=== PATIENT | male | born 1950 | race Caucasian/White ===

== ENCOUNTER → 2020-05-18 11:19 | Outpatient (CLI) | payer MEDICARE, OTHER, SELFPAY ==
[2020-05-18] MEDS: COVID-19 VACC #1, MRNA(MOD) 100 MCG/0.5 ML VIAL IM (11:24)
== END ==
PROVIDERS: Visit Provider Internal Medicine
DX: Z23 Encounter for immunization (principal)
CPT/HCPCS: 0011A; 91301

== ENCOUNTER → 2020-06-15 12:20 | Outpatient (CLI) | payer MEDICARE, OTHER, SELFPAY ==
[2020-06-15] MEDS: COVID-19 VACC #2, MRNA(MOD) 100 MCG/0.5 ML VIAL IM (12:30)
== END ==
PROVIDERS: Visit Provider Internal Medicine
DX: Z23 Encounter for immunization (principal)
CPT/HCPCS: 0012A; 91301

== ENCOUNTER 2022-10-09 07:13 | Emergency (ER) | payer MEDICARE, OTHER, SELFPAY ==
[2022-10-09 07:24] VITALS: BP 208/98; PULSE 71; RESP 16; TEMP 37.6; O2SAT 99; BMI 26.4
--- NOTE | 2022-10-09 07:24 | ED.GENADULT ---
HPI - General Adult General Chief complaint: Urogenital-Male Stated complaint: bladder infection Time Seen by Provider: 10/09/22 07:14 History of Present Illness HPI narrative: 72-year-old male nonsmoker with noncontributory chronic medical history presents with a chief complaint of concerns about a urinary tract infection. He states that he has had urinary frequency and dribbling urine. He has some suprapubic tenderness but is otherwise well. He denies dizziness, weakness or lightheadedness. He has no chest pain or shortness of breath. He denies back pain, fever or chills. He is had no lower extremity pain, numbness, tingling or weakness. He denies any numbness in his groin. He denies any new medications or traumatic injury. Related Data Previous Rx's Medication Instructions Recorded tamsulosin 0.4 mg capsule (Flomax) 0.4 mg PO DAILY #30 caps 10/09/22 Allergies Allergy/AdvReac Type Severity Reaction Status Date / Time No Known Drug Allergies Allergy Verified 10/09/22 07:26 Review of Systems Review of Systems Narrative: GENERAL: Denies chills, fatigue, malaise, fever, sweats. HEENT: Denies sinus pain, ear pain, sore throat, difficulty swallowing, dizziness. RESPIRATORY: Denies dyspnea, cough, wheezing, hemoptysis, sputum. CARDIOVASCULAR: Denies chest pain, palpitations, orthopnea, edema, GASTROINTESTINAL: Denies nausea, vomiting, abdominal pain, diarrhea, constipation, melena. : See HPI MUSCULOSKELETAL: denies weakness, joint pain, or bony pain SKIN: Denies rash, skin lesions, or other NEUROLOGIC: Denies weakness, headache, numbness, change in speech, confusion, seizures, incoordination. PSYCHIATRIC: No concerning psychosocial issues. 12 point review of systems is negative except for those stated above Patient History Social History Smoking Status: Never smoker Exam Narrative Exam Narrative: GENERAL: [72] year old patient appears stated age. Well-developed patient, in mild distress. HEAD: Atraumatic. Normocephalic. EYES: Pupils equal round and reactive. Extraocular motions intact. No scleral icterus. No injection or drainage. ENT: Nose without bleeding, purulent drainage. Throat without erythema, tonsillar hypertrophy or exudate. Airway patent. NECK: Trachea midline. Non tender CARDIOVASCULAR: Regular rate and rhythm without murmurs, gallops, or rubs. RESPIRATORY: Clear to auscultation. Breath sounds equal bilaterally. No wheezes, rales, or rhonchi. GASTROINTESTINAL: Abdomen mild tenderness over suprapubic region fullness on palpation, nondistended. Bowel sounds present EXTREMITIES: No edema or joint tenderness. BACK: Nontender without deformity or crepitance. No flank tenderness. No saddle anesthesia or lower extremity numbness, tingling or weakness NEURO: AOx3. SKIN: No rash or erythema of visible areas Initial Vital Signs Initial Vital Signs: Vital Signs Temperature 99.6 F 10/09/22 07:24 Pulse Rate 71 10/09/22 07:24 Respiratory Rate 16 10/09/22 07:24 Blood Pressure 208/98 H 10/09/22 07:24 Pulse Oximetry 99 10/09/22 07:24 Oxygen Delivery Method Room Air 10/09/22 07:24 Course Course Course Narrative: Postvoid residual bladder scan notes greater than 999mL. Bowers catheter placed by nursing. Patient experiences in immediate near-complete resolution of symptoms Orders Ordered: Discontinued Medications Lidocaine HCl (Lidocaine 2% (Glydo) 6 Ml Gel) 6 ml TOP NOW ONE Stop: 10/09/22 07:39 Last Admin: 10/09/22 08:20 Dose: 6 ml Documented By: NR Vital Signs Vital signs: Vital Signs - 8 hr 10/09/22 07:24 10/09/22 08:15 10/09/22 08:15 Temperature 99.6 F Pulse Rate 71 67 Respiratory Rate 16 Blood Pressure 208/98 H 197/90 H Pulse Oximetry 99 97 Oxygen Delivery Method Room Air Medical Decision Making Lab Data Labs: Lab Results 10/09/22 Range/Units 08:18 Urine RBC >100/hpf H (0-5/HPF) Urine WBC 1-5/hpf (0-5/HPF) Ur Squamous Epith Cells 1-5 /hpf (0-5/HPF) Urine Bacteria Occasional (0-1) (None) Ur Culture Indicated? Cult not indicated Urine Dip Bedside Urine Glucose Negative Bedside Urine Bilirubin - Negative Bedside Urine Ketone - Negative Urine Specific [place] 1.015 Bedside Urine Occult Blood +++ Bedside Urine pH 6.0 Bedside Urine Protein + 30 Bedside Urine Urobilinogen - Negative Bedside Urine Nitrite - Negative Bedside Urine Leukocytes +/- 15 Esterase Point of care testing: Urine Dip Bedside Urine Glucose Negative Bedside Urine Bilirubin - Negative Bedside Urine Ketone - Negative Urine Specific [place] 1.015 Bedside Urine Occult Blood +++ Bedside Urine pH 6.0 Bedside Urine Protein + 30 Bedside Urine Urobilinogen - Negative Bedside Urine Nitrite - Negative Bedside Urine Leukocytes +/- 15 Esterase MDM Narrative Medical decision making narrative: [72] year old patient presents with urinary difficulty Multiple etiologies for patient's symptoms considered including, but not limited to: [UTI versus urinary retention versus other] Prior Charts reviewed in our EMR Primary Historian: patient Labs reviewed and interpreted by myself: No evidence of urinary infection Imaging reviewed: Bladder scan notes greater than 999 mL of urine postvoid residual Patient's symptoms improved over duration of stay with above-stated therapies. Patient has no signs of cauda equina such as saddle anesthesia, lower extremity weakness, depressed reflexes, no back pain. Patient has no other symptoms. There was some difficulty advancing a Bowers catheter and eventually a coude was inserted which is consistent with prostate problem. Patient has complete resolution of symptoms after Bowers catheter placed Findings and discharge diagnosis discussed with patient/family followed by verbalization of understanding Return precautions discussed with patient/family whom verbalize understanding of diagnosis and plan Discharge Plan Departure Patient Disposition: Home Clinical Impression: Acute retention of urine Instructions: DI for Urinary Retention in Men Activity Restrictions/Additional Instructions: *You have been diagnosed with [acute urinary retention] *What to do: *Please continue to take your regular medications as directed. [x ] New medication prescriptions sent to your pharmacy: [[facility] ] [ ] New medication written as a paper prescription [ ] No new medications given *Please follow up with Dr. Kearney or Dr. Camarillo with the urology clinic. Please call the office later today, let them know that you were seen in the emergency department and we would like you seen in follow-up. I will electronically transmitted a copy of today's note *Return to Emergency Department if you should have any new, worsening or concerning symptoms, such as [fever greater than 101 F, shaking chills, worsening pain, persistent vomiting or other bothersome symptoms] Prescriptions: New tamsulosin [Flomax] 0.4 mg capsule 0.4 mg PO DAILY Qty: 30 0RF Referrals: Krysten Kearney MD [Physician] - Stand Alone Forms: Patient Portal/API
[2022-10-09 08:15] VITALS: BP 197/90; PULSE 67; O2SAT 97
--- NOTE | 2022-10-09 08:19 | PC.NURSE ---
pt states he takes his blood pressure at home and it tends to be much lower, it is always really high when he comes to a doctor.
[2022-10-09] MEDS: LIDOCAINE 2% (GLYDO) 6 ML GEL TOP (08:20)
--- NOTE | 2022-10-09 08:20 | PC.NURSE ---
spoke with provider about amount out of quevedo upon placement. quevedo clamped at 1500ml output. awaiting provider order to unclamp quevedo
[2022-10-09 08:30] VITALS: BP 173/81; PULSE 63; O2SAT 97
[2022-10-09 08:48] LABS: Bacteria Urine Occasional (0-1); Culture Indicated Urine Cult Not Indicated; RBC Urine >100/HPF (0-5/HPF); Squamous Epithelial Cell Urine 1-5 /HPF (0-5/HPF); WBC Urine 1-5/HPF (0-5/HPF)
--- NOTE | 2022-10-09 08:54 | PC.NURSE ---
quevedo unclamped with provider in room. 1000ml voided from catheter before trickly only seen in quevedo tubing. provider notified on spot.
[2022-10-09 09:00] VITALS: BP 178/76; PULSE 59; O2SAT 97
== END 2022-10-09 09:21 | disposition home or self-care (01) ==
PROVIDERS: Emergency Provider Emergency Medicine
DX: R33.9 Retention of urine, unspecified (principal)
CPT/HCPCS: 51798; 81003; 81015; 99282; 99284

== ENCOUNTER → 2022-12-25 16:06 | Outpatient (CLI) | payer MEDICARE, OTHER, SELFPAY | PROVIDERS: Visit Provider Urology | DX: Z97.8 Presence of other specified devices (principal) | CPT/HCPCS: 87077; 87086; 87186 ==

== ENCOUNTER → 2023-02-25 10:55 | Outpatient (CLI) | payer MEDICARE, OTHER, SELFPAY | PROVIDERS: Visit Provider Urology | DX: T83.511A Infection and inflammatory reaction due to indwelling urethral catheter, initial encounter (principal); N39.0 Urinary tract infection, site not specified; R31.29 Other microscopic hematuria; R33.9 Retention of urine, unspecified; R39.9 Unspecified symptoms and signs involving the genitourinary system | CPT/HCPCS: 51798; 81002; 87077; 87086; 87147; 87186; 99214 ==

== ENCOUNTER 2023-06-01 10:08 | Emergency (ER) | payer MEDICARE, OTHER, SELFPAY ==
[2023-06-01] VITALS (102 sets, daily range): BP systolic 72–167; BP diastolic 46–95; PULSE 90–154; RESP 18–71; TEMP 36.2–37.9; O2SAT 78–97; BMI 26.4
--- NOTE | 2023-06-01 10:53 | DI.CT.S_ITS ---
PROCEDURE: CT STROKE INDICATIONS: confusion wor, not acting right, sudden onset slurred speech TECHNIQUE: Noncontrast 4.5 mm thick angled axial sections acquired from the foramen magnum to the vertex, with coronal reformats. For radiation dose reduction, the following was used: automated exposure control, adjustment of mA and/or kV according to patient size. COMPARISON: None. FINDINGS: Image quality: Diagnostic. CSF spaces: Basal cisterns are patent. No extra-axial fluid collections. Ventricles are normal in size and shape. Brain: No midline shift. No intracranial masses or hemorrhage. [place]-white matter interface is within normal limits. Skull and face: Calvarium and visualized facial bones are intact, without suspicious lesions. Sinuses: Partial opacification of the left maxillary sinus. Mucosal thickening in the right maxillary sinus. Partial opacification of the ethmoid air cells. Opacification of the left frontal sinus. Mild mucosal thickening in the right frontal sinus. Scant mucosal thickening in the sphenoid sinuses. Mastoids are clear. IMPRESSION: No acute intracranial hemorrhage. Paranasal sinusitis. Comment: Findings were discussed with Blank Vega at 11:32 AM on 06/01/2023. This study fulfills neurological imaging criteria for inclusion or exclusion of acute stroke therapies based on available published neurological imaging guidelines. Dictated by: Mckay Pillai M.D. on 06/01/2023 at 11:28 Approved by: Mckay Pillai M.D. on 06/01/2023 at 11:33
[2023-06-01] MEDS: ONDANSETRON 4 MG/2 ML INJ IV (11:00)
[2023-06-01 11:01] LABS: Add Manual Diff / Slide Review NO; Basophils Absolute Auto 0 /uL (0-100); Basophils Percent Auto 0.2 % (0-2); Eosinophils Absolute Auto 0 /uL (0-450); Hematocrit 43.8 % (41-53); Hemoglobin 15.1 g/dL (13.5-17.5); Lymphocytes Absolute Auto 800 /uL (1100-4500); Lymphocytes Percent Auto 7.2 % (25-40); Mean Corpuscular HGB Conc 34.5 % (30-36); Mean Corpuscular Hemoglobin 29.5 PG (26-34); Mean Corpuscular Volume 85.6 fL (80-100); Monocytes Absolute Auto 1200 /uL (0-900); Monocytes Percent Auto 10.7 % (3-14); Neutrophils Absolute Auto 9000 /uL (1500-7000); Neutrophils Percent Auto 81.9 % (50-75); Platelet Count 457 X10^3/uL (150-400); Red Blood Cell Count 5.12 X10^6/uL (4.5-5.9); Red Cell Distribution Width 14.2 % (11.6-14.8)
[2023-06-01 11:05] LABS: INR 1.2 (0.9-1.3); Prothrombin Time 14.2 SECONDS (9.4-12.5)
[2023-06-01 11:07] LABS: PTT Partial Thromboplastin Tim 28 SECONDS (25.1-36.5)
[2023-06-01 11:11] LABS: Lactate (Lactic Acid) 1.9 mmol/L (0.7-2.1)
[2023-06-01 11:12] LABS: Alanine Aminotransferase 18 IU/L (<50); Albumin 4.1 g/dL (3.5-5.0); Albumin Globulin Ratio 1.1 (1.0-2.8); Alkaline Phosphatase 398 U/L (38-126); Aspartate Aminotransferase 28 IU/L (17-59); BUN Creatinine Ratio 37.2 (6-22); Bilirubin Total 0.8 mg/dL (0.2-1.3); Blood Urea Nitrogen 35 mg/dL (9-20); Calcium 8.8 mg/dL (8.4-10.2); Carbon Dioxide 27 mmol/L (22-32); Chloride 90 mmol/L (98-107); Estimated Glomerular Filt Rate > 60 mL/min (>60); Globulin 3.9 g/dL (1.7-4.1); Glucose 161 mg/dL (80-110); Lipase 81 U/L (23-300); Sodium 130 mmol/L (137-145)
--- NOTE | 2023-06-01 11:12 | DI.RAD.S_ITS ---
PROCEDURE: XR CHEST 1V INDICATIONS: disoriented, altered, vomiting green, ? weakness TECHNIQUE: One view of the chest was acquired. COMPARISON: None. FINDINGS: Surgical changes and devices: NGT is present, which extends below the level of the film. ETT is present, tip of which is in expected location. Lungs and pleura: There is moderate right and mild left bilateral mid lung airspace opacity.. No pleural effusions or pneumothorax. Mediastinum: Mediastinal contours appear normal. Heart size is normal. Bones and chest wall: No suspicious bony lesions. Overlying soft tissues appear unremarkable. IMPRESSION: Bilateral pneumonia. Dictated by: Valeria Scanlon M.D. on 06/01/2023 at 12:29 Approved by: Valeria Scanlon M.D. on 06/01/2023 at 12:29
--- NOTE | 2023-06-01 11:12 | DI.CT.S_ITS ---
PROCEDURE: CT CHEST ABD PEL W CON INDICATIONS: disoriented, altered, vomiting green, ? weakness TECHNIQUE: After the administration of intravenous contrast, 5 mm thick sections acquired from the lung apices to the symphysis. 5 mm coronal and sagittal reformats were performed, with additional 7 mm MIP reformats through the lungs. For radiation dose reduction, the following was used: automated exposure control, adjustment of mA and/or kV according to patient size. COMPARISON: None. FINDINGS: Image quality: Excellent. CHEST: Lower Neck: No enlarged lymph nodes. Thyroid: Left thyroid nodule measuring 35 mm. Axillae: No enlarged lymph nodes. Chest Wall: Unremarkable. Lungs and Pleura: No pneumothorax . Small right pleural effusion. Mild left greater than right patchy bilateral lower lobe and left upper lobe densities. Heart: Heart size is normal. No pericardial effusion. Thoracic Vessels: The aorta and pulmonary arteries demonstrate normal size. Mediastinum and [place]: No enlarged lymph nodes. Esophagus: Moderate diffuse esophageal wall thickening.. ABDOMEN: Liver: No solid mass. Gallbladder: No radiopaque gallstones or wall thickening. Biliary ducts: No biliary dilation. Pancreas: No ductal dilation. Spleen: Size is within normal limits. Adrenal Glands: No adrenal nodules. Kidneys and Ureters: No hydronephrosis. No solid mass. No complex renal cystic lesion which requires follow up. Stomach and Bowel: Multiple moderately distended loops of proximal and mid small bowel. Distal ileum is decompressed. Transition between dilated and nondilated small bowel is not well seen. Appendix is normal. Colon is nondistended. Peritoneum: No abnormal intraperitoneal fluid. No free air. Ventral Wall: No significant ventral hernia. Abdominal Nodes: No retroperitoneal or mesenteric adenopathy by size criteria. Vessels: Aorta and inferior vena cava are normal in size. PELVIS: Pelvic Organs: Unremarkable. Bladder: No bladder wall thickening, accounting for underdistention. Pelvic Nodes: No enlarged lymph nodes. Miscellaneous: Large bowel containing left inguinal hernia containing a loop of sigmoid colon, measuring 13 cm. Small bowel containing right inguinal hernia measuring roughly 9 cm. Bones: Multiple sclerotic foci throughout the axial and appendicular skeleton. IMPRESSION: 1. Small-bowel obstruction associated with small bowel dilatation as well as gastric dilatation. 2. Bowel containing bilateral inguinal hernias. 3. Normal appendix. 4. Esophageal thickening, consistent with ischemia, infection, or inflammation. 5. Left thyroid nodule. Further assessment with nonemergent outpatient follow-up ultrasound examination is recommended. 6. Bilateral lower lung predominant pneumonia versus aspiration. 7. Moderate osseous metastatic disease. Dictated by: Valeria Scanlon M.D. on 06/01/2023 at 12:10 Approved by: Valeria Scanlon M.D. on 06/01/2023 at 12:16
[2023-06-01 11:13] LABS: Creatine Kinase 56 U/L (55-170); Ethanol (ETOH) < 10 mg/dL
[2023-06-01 11:15] LABS: HEMOLYSIS 57 (0-50); Potassium 4.3 mmol/L (3.4-5.1)
--- NOTE | 2023-06-01 11:18 | ED.AMS ---
HPI - Altered Mental Status General Chief Complaint: Urogenital-Male Stated Complaint: uti disoriented Time Seen by Provider: 06/01/23 10:45 Source: patient Mode of arrival: Ambulatory Limitations: altered mental status History of Present Illness HPI narrative: 72-year-old male with reported history of urinary retention who is on Flomax and self caths regular basis. Patient does not have any known medical issues but has not seen a physician in some time. Patient presented to with his to triage was answering questions appropriately when he seemed to lose consciousness and began moaning and would not open his eyes. Patient was unable to give any history to myself. states he seemed disoriented today, he self caths she has not seen that he is actually catheterized himself recently. She states otherwise he was very resistant to come into the hospital but seemed otherwise normal. She states no weakness numbness, he was not complaining of headaches, no chest pain or shortness of breath. Was not having any vomiting, diarrhea or other GI or urinary issues but she states he is very reserved and does not really give that kind of history to her. She states he does not take any daily medications. No known surgeries in the past. No known drug allergies. He has been told he has a large prostate. Does not use tobacco, occasional alcohol, no recreational drugs. Was seen Urology with Dr. Camarillo. Related Data Previous Rx's Medication Instructions Recorded tamsulosin 0.4 mg capsule (Flomax) 0.8 mg (2 x 0.4 mg) PO DAILY #180 02/25/23 caps Allergies Allergy/AdvReac Type Severity Reaction Status Date / Time No Known Drug Allergies Allergy Verified 01/12/23 13:12 Review of Systems Review of Systems ROS Unobtainable: Unobtainable due to mental status/LOC Patient History Medical History Intermittent self-catheterization of bladder Hypotonic bladder Urinary tract infection Bladder outlet obstruction Lower urinary tract symptoms Urinary retention UTI (urinary tract infection) due to urinary indwelling catheter History of high blood pressure Family History Mother Cancer Father CAD (coronary artery disease) Social History marital status: number of children: 0 Smoking Status: Never smoker alcohol intake: current caffeine: Yes Type(s) of exercise: walking frequency: daily Smoking Status: Never smoker alcohol intake frequency: 0-2 drinks per day Substance Use Type: does not use Exam Narrative Exam Narrative: GEN: well nourished, well appearing male, patient appears to be in severe distress. Patient is seated upright in chair slumped to the left does not respond to verbal stimuli. HEENT: Atraumatic, pupils are equal round reactive to light, nares are clear, there is no conjunctival pallor. Throat is clear without any exudates, erythema, tonsillar enlargement or uvular deviation, no obvious facial droop. HEART: Regular rate and rhythm without murmur, clicks, rubs. No carotid bruits, pulses are equal in upper and lower extremities LUNGS:Lungs clear to auscultation, no wheezes, rales, crackles, chest moves symmetrically ABD:bowel sounds normal, slightly distended, soft, non-tender, no guarding, rebound, rigidity, no masses noted, no hepatosplenomegaly :No CVA tenderness MSCL: Non-tender, no muscle atrophy, patient pulling and tugging things with his right hand and twitching his right leg but does not appear to have movement of his left upper or lower extremity. NEURO:CN 2-12 intact, sensation normal SKIN: No rash, erythema or other skin changes Initial Vital Signs Initial Vital Signs: Vital Signs Temperature 97.1 F L 06/01/23 10:34 Pulse Rate 109 H 06/01/23 10:34 Respiratory Rate 18 06/01/23 10:34 Blood Pressure 151/95 H 06/01/23 10:34 Pulse Oximetry 97 06/01/23 10:34 Oxygen Delivery Method Room Air 06/01/23 10:34 Procedures Central Line Placement Right IJ: Time Out Performed: Yes Patient Placed on Monitor/Pulse Ox: Yes MD Prep: mask, gown and gloves Central Line Prep: Chlorhexidine scrub and sterile drapes applied Ultrasound Used for Placement: Yes Central Line Lumen Inserted: triple Post Procedure: sutured in place, good blood return, all ports aspirated, flushed, capped, sterile dressing applied and line stabilization device Post Procedure X-Ray: tip of catheter in good position and no pneumothorax seen Patient Tolerated Procedure: Well and No complications Complications: none Course Orders Ordered: ED Orders 06/01/23 10:41 EKG-12 Lead Stat 06/01/23 10:53 CT Stroke Stat 06/01/23 10:55 Complete Blood Count AUTO DIFF Stat Comprehensive Metabolic Panel Stat Ethanol (ETOH) Stat Lactate (Lactic Acid) Stat Lipase Stat PTT Partial Thromboplastin Ori Stat Procalcitonin Stat Prothrombin Time INR Stat Troponin & CK Cardiac Panel Stat 06/01/23 11:12 CT chest abd pel w con Stat XR chest 1V Stat 06/01/23 11:31 ABG [Arterial Blood Gas] Stat 06/01/23 11:55 CMP [Comprehensive Metabolic Panel] Stat Lactate (Lactic Acid) Stat 06/01/23 12:07 CBC Auto Diff [Complete Blood Count AUTO DIFF] Stat 06/01/23 12:18 ABG [Arterial Blood Gas] Stat 06/01/23 12:50 Blood Culture Stat 06/01/23 13:50 Ictotest Urine Stat Urinalysis and Microscopic Stat Urine Culture Stat Urine Drug Screen, Rapid Stat 06/01/23 13:59 CT angio head and neck Stat 06/01/23 14:00 Respiratory Panel (Film Array) Stat 06/01/23 14:48 Trop I [Troponin I] Stat 06/01/23 15:44 XR chest 1V Stat 06/01/23 15:49 ABG [Arterial Blood Gas] Stat Fentanyl 1,000 mcg/ Dextrose 250 mls @ 15.479 mls/hr IV TITRATE PAUL; Protocol Last Titration: 06/01/23 18:16 Dose: Infused Documented By: Titration: 06/01/23 14:01 Dose: 1.6 mcg/kg/hr, 35.38 mls/hr Documented By: Titration: 06/01/23 13:47 Dose: 1.4 mcg/kg/hr, 30.958 mls/hr Documented By: Titration: 06/01/23 13:39 Dose: 1 mcg/kg/hr, 22.113 mls/hr Documented By: Titration: 06/01/23 13:35 Dose: 0.9 mcg/kg/hr, 19.901 mls/hr Documented By: Titration: 06/01/23 13:25 Dose: 0.8 mcg/kg/hr, 17.69 mls/hr Documented By: Admin: 06/01/23 12:12 Dose: 0.7 mcg/kg/hr, 15.479 mls/hr Documented By: STEVE Lorazepam 20 mg/ Sodium (Chloride) 100 mls @ 4.423 mls/hr IV TITRATE PAUL; Protocol Last Admin: 06/01/23 17:38 Dose: Not Given Documented By: MLRayray NOREPINEPHRINE BITARTRATE/D5W (Levophed) 4 mg in 250 mls @ 33.169 mls/hr IV TITRATE PAUL; Protocol Last Admin: 06/01/23 17:20 Dose: Not Given Documented By: MLRayray Sodium Chloride (Normal Saline 0.9%) 1,000 mls @ 1,000 mls/hr IV BOLUS ONE Stop: 06/01/23 18:38 Last Infusion: 06/01/23 16:45 Dose: Infused Documented By: Admin: 06/01/23 15:15 Dose: 1,000 mls/hr Documented By: STEVE Lorazepam (Lorazepam 2 Mg/Ml Inj) 1 mg IV Q1HR PRN PRN Reason: sedation Last Admin: 06/01/23 14:20 Dose: 1 mg Documented By: STEVE Ondansetron HCl (Ondansetron 4 Mg/2 Ml Inj) 4 mg IV NOW PRN PRN Reason: Nausea And Vomiting Last Admin: 06/01/23 11:00 Dose: 4 mg Documented By: GREGG Ondansetron HCl (Ondansetron 4 Mg Odt) 4 mg PO NOW PRN PRN Reason: Nausea And Vomiting Ondansetron HCl (Ondansetron 4 Mg/2 Ml Inj) 4 mg IV Q6HR PRN PRN Reason: Nausea And Vomiting Discontinued Medications Etomidate (Etomidate 2 Mg/Ml 10 Ml Vial) 10 mg IV NOW ONE Stop: 06/01/23 12:29 Last Admin: 06/01/23 11:41 Dose: 10 mg Documented By: STEVE Fentanyl (Fentanyl 100 Mcg/2 Ml Inj) 50 mcg IV NOW ONE Stop: 06/01/23 11:57 Last Admin: 06/01/23 11:55 Dose: 50 mcg Documented By: CARMEN Lactated Ringer's (Lactated Ringers) 1,000 mls @ 1,000 mls/hr IV BOLUS ONE Stop: 06/01/23 13:07 Last Infusion: 06/01/23 15:10 Dose: Infused Documented By: MLRayray Admin: 06/01/23 13:05 Dose: 1,000 mls/hr Documented By: STEVE Piperacillin Sod/Tazobactam (Sod 4.5 gm/ Sodium Chloride) 100 mls @ 200 mls/hr IV NOW ONE Stop: 06/01/23 12:27 Last Infusion: 06/01/23 13:28 Dose: Infused Documented By: MLRayray Admin: 06/01/23 12:34 Dose: 200 mls/hr Documented By: MLRayray Sodium Chloride (Normal Saline 0.9%) 1,000 mls @ 1,000 mls/hr IV BOLUS ONE Stop: 06/01/23 14:29 Last Infusion: 06/01/23 13:10 Dose: Infused Documented By: MLRayray Admin: 06/01/23 11:38 Dose: 1,000 mls/hr Documented By: STEVE Vancomycin HCl/Dextrose (Vancomycin) 1,500 mg in 300 mls @ 200 mls/hr IV NOW ONE Stop: 06/01/23 15:24 Last Infusion: 06/01/23 17:25 Dose: Infused Documented By: MLRayray Admin: 06/01/23 15:46 Dose: 200 mls/hr Documented By: STEVE Ketamine HCl (Ketamine 500 Mg/5 Ml Inj) 100 mg IV NOW ONE Stop: 06/01/23 12:27 Last Admin: 06/01/23 11:40 Dose: 100 mg Documented By: STEVE Lorazepam (Lorazepam 2 Mg/Ml Inj) 1 mg IV NOW ONE Stop: 06/01/23 11:57 Last Admin: 06/01/23 12:13 Dose: 1 mg Documented By: STEVE Morphine Sulfate (Morphine 4 Mg/Ml Inj) 4 mg IV NOW ONE Stop: 06/01/23 11:27 Last Admin: 06/01/23 11:29 Dose: 4 mg Documented By: STEVE Succinylcholine Chloride (Succinylcholine 200 Mg/10 Ml Vial) 100 mg IV NOW ONE Stop: 06/01/23 12:30 Last Admin: 06/01/23 11:43 Dose: 100 mg Documented By: STEVE Vital Signs Vital signs: Vital Signs - 8 hr 06/01/23 11:07 06/01/23 11:10 06/01/23 11:10 Temperature Pulse Rate 92 H 147 H Respiratory Rate 33 H 25 H Blood Pressure 167/86 H Pulse Oximetry 85 L 90 L 06/01/23 11:30 06/01/23 11:52 06/01/23 11:52 Temperature Pulse Rate 120 H 131 H Respiratory Rate 18 23 Blood Pressure 125/74 Pulse Oximetry 83 L 06/01/23 12:00 06/01/23 12:08 06/01/23 12:08 Temperature Pulse Rate 154 H 131 H Respiratory Rate 24 29 H Blood Pressure 111/56 L Pulse Oximetry 87 L 89 L 06/01/23 12:09 06/01/23 12:09 06/01/23 12:12 Temperature Pulse Rate 127 H Respiratory Rate 26 H Blood Pressure 106/47 L 102/52 L Pulse Oximetry 88 L 06/01/23 12:12 06/01/23 12:15 06/01/23 12:15 Temperature Pulse Rate 131 H 101 H Respiratory Rate 28 H 31 H Blood Pressure 94/54 L Pulse Oximetry 87 L 83 L 06/01/23 12:18 06/01/23 12:18 06/01/23 12:19 Temperature Pulse Rate 140 H 132 H Respiratory Rate 26 H 26 H Blood Pressure 72/50 L Pulse Oximetry 85 L 85 L 06/01/23 12:19 06/01/23 12:21 06/01/23 12:21 Temperature Pulse Rate 129 H Respiratory Rate 31 H Blood Pressure 76/51 L 115/59 L Pulse Oximetry 85 L 06/01/23 12:24 06/01/23 12:24 06/01/23 12:27 Temperature Pulse Rate 145 H Respiratory Rate 29 H Blood Pressure 95/65 91/46 L Pulse Oximetry 83 L 06/01/23 12:27 06/01/23 12:30 06/01/23 12:30 Temperature Pulse Rate 101 H 93 H Respiratory Rate 31 H 27 H Blood Pressure 98/55 L Pulse Oximetry 84 L 85 L 06/01/23 12:33 06/01/23 12:33 06/01/23 12:36 Temperature Pulse Rate 96 H 99 H Respiratory Rate 27 H 28 H Blood Pressure 98/50 L Pulse Oximetry 86 L 84 L 06/01/23 12:36 06/01/23 12:39 06/01/23 12:39 Temperature Pulse Rate 96 H Respiratory Rate 31 H Blood Pressure 90/54 L 89/52 L Pulse Oximetry 85 L 06/01/23 12:42 06/01/23 12:42 06/01/23 12:45 Temperature Pulse Rate 97 H Respiratory Rate 28 H Blood Pressure 90/52 L 89/54 L Pulse Oximetry 86 L 06/01/23 12:45 06/01/23 12:48 06/01/23 12:48 Temperature Pulse Rate 96 H 96 H Respiratory Rate 30 H 33 H Blood Pressure 87/53 L Pulse Oximetry 85 L 84 L 06/01/23 12:58 06/01/23 12:58 06/01/23 13:00 Temperature Pulse Rate 96 H 96 H Respiratory Rate 33 H 31 H Blood Pressure 99/52 L Pulse Oximetry 89 L 89 L 06/01/23 13:00 06/01/23 13:03 06/01/23 13:03 Temperature Pulse Rate 96 H Respiratory Rate 33 H Blood Pressure 95/50 L 97/51 L Pulse Oximetry 90 L 06/01/23 13:06 06/01/23 13:06 06/01/23 13:09 Temperature Pulse Rate 96 H 95 H Respiratory Rate 32 H 35 H Blood Pressure 98/56 L Pulse Oximetry 91 92 06/01/23 13:09 06/01/23 13:12 06/01/23 13:12 Temperature Pulse Rate 92 H Respiratory Rate 32 H Blood Pressure 92/55 L 91/53 L Pulse Oximetry 90 L 06/01/23 13:15 06/01/23 13:15 06/01/23 13:18 Temperature Pulse Rate 93 H 93 H Respiratory Rate 37 H 36 H Blood Pressure 91/50 L Pulse Oximetry 91 90 L 06/01/23 13:18 06/01/23 13:21 06/01/23 13:21 Temperature Pulse Rate 93 H Respiratory Rate 37 H Blood Pressure 99/55 L 102/53 L Pulse Oximetry 90 L 06/01/23 13:24 06/01/23 13:24 06/01/23 13:27 Temperature Pulse Rate 95 H 94 H Respiratory Rate 36 H 39 H Blood Pressure 101/54 L Pulse Oximetry 91 90 L 06/01/23 13:27 06/01/23 13:30 06/01/23 13:30 Temperature Pulse Rate 96 H Respiratory Rate 37 H Blood Pressure 97/52 L 98/54 L Pulse Oximetry 90 L 06/01/23 13:33 06/01/23 13:33 06/01/23 13:36 Temperature Pulse Rate 95 H 95 H Respiratory Rate 39 H 36 H Blood Pressure 100/56 L Pulse Oximetry 91 91 06/01/23 13:36 06/01/23 13:39 06/01/23 13:39 Temperature Pulse Rate 93 H Respiratory Rate 39 H Blood Pressure 99/58 L 102/59 L Pulse Oximetry 92 06/01/23 13:42 06/01/23 13:42 06/01/23 13:45 Temperature Pulse Rate 96 H 96 H Respiratory Rate 37 H 52 H Blood Pressure 106/56 L Pulse Oximetry 91 91 06/01/23 13:45 06/01/23 13:48 06/01/23 13:48 Temperature Pulse Rate 96 H Respiratory Rate 52 H Blood Pressure 104/57 L 99/54 L Pulse Oximetry 92 06/01/23 13:51 06/01/23 13:51 06/01/23 13:54 Temperature Pulse Rate 97 H 95 H Respiratory Rate 63 H 44 H Blood Pressure 100/55 L Pulse Oximetry 92 91 06/01/23 13:54 06/01/23 13:57 06/01/23 13:57 Temperature Pulse Rate 98 H Respiratory Rate 71 H Blood Pressure 100/58 L 122/56 L Pulse Oximetry 92 06/01/23 14:00 06/01/23 14:00 06/01/23 14:03 Temperature Pulse Rate 99 H 98 H Respiratory Rate 37 H 39 H Blood Pressure 121/60 Pulse Oximetry 93 97 06/01/23 14:03 06/01/23 14:06 06/01/23 14:06 Temperature Pulse Rate 97 H Respiratory Rate 38 H Blood Pressure 104/55 L 107/59 L Pulse Oximetry 97 06/01/23 14:09 06/01/23 14:09 06/01/23 14:12 Temperature Pulse Rate 98 H 99 H Respiratory Rate 37 H 36 H Blood Pressure 114/58 L Pulse Oximetry 96 96 06/01/23 14:12 06/01/23 14:13 06/01/23 14:22 Temperature Pulse Rate 99 H Respiratory Rate 37 H Blood Pressure 100/57 L 107/55 L Pulse Oximetry 96 06/01/23 14:24 06/01/23 14:27 06/01/23 14:30 Temperature Pulse Rate Respiratory Rate Blood Pressure 105/55 L 104/59 L 103/58 L Pulse Oximetry 06/01/23 14:30 06/01/23 14:35 06/01/23 14:35 Temperature Pulse Rate 98 H 97 H Respiratory Rate 31 H 32 H Blood Pressure 106/52 L Pulse Oximetry 78 L 94 06/01/23 14:36 06/01/23 14:36 06/01/23 14:39 Temperature Pulse Rate 97 H 97 H Respiratory Rate 32 H 31 H Blood Pressure 101/54 L Pulse Oximetry 94 94 06/01/23 14:39 06/01/23 14:42 06/01/23 14:42 Temperature Pulse Rate 98 H Respiratory Rate 31 H Blood Pressure 95/50 L 97/55 L Pulse Oximetry 94 06/01/23 14:45 06/01/23 14:45 06/01/23 14:48 Temperature Pulse Rate 98 H Respiratory Rate 31 H Blood Pressure 97/52 L 99/57 L Pulse Oximetry 94 06/01/23 14:48 06/01/23 14:51 06/01/23 14:51 Temperature Pulse Rate 96 H 95 H Respiratory Rate 30 H 30 H Blood Pressure 103/55 L Pulse Oximetry 94 94 06/01/23 14:54 06/01/23 14:54 06/01/23 14:57 Temperature Pulse Rate 94 H 93 H Respiratory Rate 31 H 30 H Blood Pressure 107/59 L Pulse Oximetry 95 95 06/01/23 14:57 06/01/23 15:00 06/01/23 15:00 Temperature Pulse Rate 92 H Respiratory Rate 31 H Blood Pressure 100/59 L 104/57 L Pulse Oximetry 96 06/01/23 15:03 06/01/23 15:03 06/01/23 15:06 Temperature Pulse Rate 93 H 93 H Respiratory Rate 30 H 31 H Blood Pressure 96/51 L Pulse Oximetry 95 95 06/01/23 15:06 06/01/23 15:09 06/01/23 15:09 Temperature Pulse Rate 93 H Respiratory Rate 29 H Blood Pressure 95/51 L 94/53 L Pulse Oximetry 95 06/01/23 15:12 06/01/23 15:12 06/01/23 15:15 Temperature Pulse Rate 94 H 95 H Respiratory Rate 27 H 26 H Blood Pressure 95/54 L Pulse Oximetry 95 95 06/01/23 15:15 06/01/23 15:18 06/01/23 15:18 Temperature Pulse Rate 93 H Respiratory Rate 28 H Blood Pressure 97/57 L 101/56 L Pulse Oximetry 95 06/01/23 15:21 06/01/23 15:21 06/01/23 15:24 Temperature Pulse Rate 94 H 93 H Respiratory Rate 26 H 25 H Blood Pressure 100/56 L Pulse Oximetry 95 95 06/01/23 15:24 06/01/23 15:28 06/01/23 15:28 Temperature Pulse Rate 93 H Respiratory Rate 26 H Blood Pressure 103/59 L 93/54 L Pulse Oximetry 95 06/01/23 15:30 06/01/23 15:30 06/01/23 15:33 Temperature Pulse Rate 93 H 93 H Respiratory Rate 26 H 25 H Blood Pressure 96/51 L Pulse Oximetry 95 95 06/01/23 15:33 06/01/23 15:36 06/01/23 15:36 Temperature Pulse Rate 93 H Respiratory Rate 26 H Blood Pressure 98/57 L 86/50 L Pulse Oximetry 95 06/01/23 15:39 06/01/23 15:39 06/01/23 15:42 Temperature Pulse Rate 93 H 93 H Respiratory Rate 26 H 26 H Blood Pressure 86/53 L Pulse Oximetry 94 06/01/23 15:42 06/01/23 15:54 06/01/23 15:54 Temperature Pulse Rate 92 H Respiratory Rate 27 H Blood Pressure 86/53 L 83/54 L Pulse Oximetry 06/01/23 16:00 06/01/23 16:01 06/01/23 16:01 Temperature Pulse Rate 93 H 92 H Respiratory Rate 25 H 25 H Blood Pressure 89/55 L Pulse Oximetry 94 94 06/01/23 16:03 06/01/23 16:03 06/01/23 16:06 Temperature Pulse Rate 92 H 92 H Respiratory Rate 24 24 Blood Pressure 87/53 L Pulse Oximetry 93 93 06/01/23 16:06 06/01/23 16:09 06/01/23 16:09 Temperature Pulse Rate 91 H Respiratory Rate 24 Blood Pressure 89/50 L 88/50 L Pulse Oximetry 94 06/01/23 16:12 06/01/23 16:12 06/01/23 16:15 Temperature Pulse Rate 90 90 Respiratory Rate 25 H 24 Blood Pressure 93/54 L Pulse Oximetry 94 94 06/01/23 16:15 06/01/23 16:18 06/01/23 16:18 Temperature Pulse Rate 90 Respiratory Rate 24 Blood Pressure 92/52 L 94/50 L Pulse Oximetry 94 06/01/23 16:21 06/01/23 16:21 06/01/23 16:24 Temperature Pulse Rate 90 90 Respiratory Rate 24 24 Blood Pressure 95/53 L Pulse Oximetry 94 95 06/01/23 16:24 06/01/23 16:27 06/01/23 16:27 Temperature Pulse Rate 90 Respiratory Rate 24 Blood Pressure 97/54 L 95/53 L Pulse Oximetry 95 06/01/23 16:30 06/01/23 16:30 06/01/23 16:33 Temperature Pulse Rate 90 91 H Respiratory Rate 24 24 Blood Pressure 97/55 L Pulse Oximetry 94 95 06/01/23 16:33 06/01/23 16:36 06/01/23 16:36 Temperature Pulse Rate 90 Respiratory Rate 24 Blood Pressure 98/55 L 97/55 L Pulse Oximetry 94 06/01/23 16:39 06/01/23 16:39 06/01/23 16:42 Temperature Pulse Rate 91 H 91 H Respiratory Rate 23 23 Blood Pressure 93/53 L Pulse Oximetry 94 94 06/01/23 16:42 06/01/23 16:46 06/01/23 16:46 Temperature Pulse Rate 90 Respiratory Rate 23 Blood Pressure 96/52 L 90/50 L Pulse Oximetry 93 06/01/23 16:48 06/01/23 16:48 06/01/23 16:51 Temperature Pulse Rate 90 90 Respiratory Rate 23 22 Blood Pressure 88/52 L Pulse Oximetry 93 93 06/01/23 16:51 06/01/23 17:00 Temperature 100.2 F H Pulse Rate Respiratory Rate Blood Pressure 89/54 L Pulse Oximetry MDM - Altered Mental Status Lab Data 06/01/23 12:07 06/01/23 11:55 Labs: Lab Results 06/01/23 06/01/23 06/01/23 Range/Units 10:55 11:31 11:55 WBC 11.0 (4.5-11.0) X10^3/uL RBC 5.12 (4.5-5.9) X10^6/uL Hgb 15.1 (13.5-17.5) g/dL Hct 43.8 (41-53) % MCV 85.6 (80-100) fL MCH 29.5 (26-34) PG MCHC 34.5 (30-36) % RDW 14.2 (11.6-14.8) % Plt Count 457 H (150-400) X10^3/uL Neut % (Auto) 81.9 H (50-75) % Lymph % (Auto) 7.2 L (25-40) % [place] % (Auto) 10.7 (3-14) % Eos % (Auto) 0.0 L (2-4) % Baso % (Auto) 0.2 (0-2) % Neut # (Auto) 9000 H (8075-8365) /uL Lymph # (Auto) 800 L (2103-9124) /uL [place] # (Auto) 1200 H (0-900) /uL Eos # (Auto) 0 (0-450) /uL Baso # (Auto) 0 (0-100) /uL Total Counted Seg Neutrophils % (38-70) % Band Neutrophils % (3-7) % Lymphocytes % (Manual) (25-45) % Monocytes % (Manual) (2-11) % Metamyelocytes % (-0) % Myelocytes % (-0) % Neutrophils # (Manual) (9953-3158) /uL Platelet Estimate RBC Morphology PT 14.2 H (9.4-12.5) SECONDS INR 1.2 (0.9-1.3) APTT 28 (25.1-36.5) SECONDS ABG Sample Site Left radial ABG pH 7.38 (7.35-7.45) ABG pCO2 48.5 H (35-45) mmHg ABG pO2 45 L* (80-100) mmHg ABG HCO3 29 H (23-27) mmol/L ABG Total CO2 30 H (23-27) mmol/L ABG O2 Saturation 79 L* (95-100) % ABG Base Excess 3.0 (-2-3) mmol/L FiO2 40 Sodium 130 L 129 L (137-145) mmol/L Potassium 4.3 4.0 (3.4-5.1) mmol/L Chloride 90 L 92 L (98-107) mmol/L Carbon Dioxide 27 26 (22-32) mmol/L BUN 35 H 33 H (9-20) mg/dL Creatinine 0.94 1.24 (0.66-1.25) mg/dL Estimated GFR > 60 > 60 (>60) mL/min BUN/Creatinine Ratio 37.2 H 26.6 H (6-22) Glucose 161 H 202 H (80-110) mg/dL Lactate 1.9 4.4 H* (0.7-2.1) mmol/L Calcium 8.8 7.9 L (8.4-10.2) mg/dL Total Bilirubin 0.8 0.6 (0.2-1.3) mg/dL AST 28 28 (17-59) IU/L ALT 18 22 (<50) IU/L Alkaline Phosphatase 398 H 343 H (38-126) U/L Total Creatine Kinase 56 (55-170) U/L Troponin I < 0.012 (0.01-0.034) ng/mL Total Protein 8.0 6.6 (6.3-8.2) g/dL Albumin 4.1 3.3 L (3.5-5.0) g/dL Globulin 3.9 3.3 (1.7-4.1) g/dL Albumin/Globulin Ratio 1.1 1.0 (1.0-2.8) Lipase 81 (23-300) U/L Procalcitonin 0.32 (<0.5) ng/mL Urine Color Urine Appearance Urine pH (4.5-8.0) Ur Specific [place] (1.000-1.035) Urine Protein (Negative) Urine Glucose (UA) (Negative) g/dL Urine Ketones (NEGATIVE) Urine Occult Blood (Negative) Urine Nitrate (Negative) Urine Bilirubin (NEGATIVE) Ur Bilirubin Confirm Urine Urobilinogen (0.2) E.U./dL Ur Leukocyte Esterase (NEGATIVE) Urine RBC (0-5/HPF) Urine WBC (0-5/HPF) Ur Squamous Epith Cells (0-5/HPF) Amorphous Sediment Urine Bacteria (None) Hyaline Casts (None) Ur Culture Indicated? Vol Urine Centrifuged U Opiates 300ng/mL cut (Negative) Ur Oxycodone Screen (Negative) Urine Methadone Screen (Negative) Ur Barbiturates Screen (Negative) U Tricyclic Antidepress (Negative) Ur Phencyclidine Scrn (Negative) Ur Amphetamines Screen (Negative) U Methamphetamines Scrn (Negative) Ur MDMA Scrn (Ecstasy) (Negative) U Benzodiazepines Scrn (Negative) Urine Cocaine Screen (Negative) U Marijuana (THC) Screen (Negative) Urine Specific [place] (Normal) Ethyl Alcohol < 10 ( - 10) mg/dL Ur Creatinine (Normal) Chlamy pneumoniae PCR (Not Detect) Adenovirus (PCR) (Not Detect) B.parapertussis DNA PCR (Not Detecte) Coronavirus OC43 (PCR) (Not Detect) Coronavirus HKU1 (PCR) (Not Detect) Coronavirus 229E (PCR) (Not Detect) SARS-CoV-2 (PCR) (Not Detecte) Coronavirus NL63 (PCR) (Not Detect) Human Metapneumovir PCR (Not Detect) Influenza Type A (PCR) (Not Detect) Influenza Type B (PCR) (Not Detect) M. pneumoniae (PCR) (Not Detect) Parainfluenza 1 (PCR) (Not Detect) Parainfluenza 2 (PCR) (Not Detect) Parainfluenza 3 (PCR) (Not Detect) Parainfluenza 4 (PCR) (Not Detect) RSV (PCR) (Not Detect) Entero/Rhino (PCR) (Not Detect) 06/01/23 06/01/23 06/01/23 Range/Units 12:07 12:18 13:50 WBC 12.0 H (4.5-11.0) X10^3/uL RBC 4.60 (4.5-5.9) X10^6/uL Hgb 13.2 L (13.5-17.5) g/dL Hct 40.3 L (41-53) % MCV 87.5 (80-100) fL MCH 28.7 (26-34) PG MCHC 32.8 (30-36) % RDW 14.7 (11.6-14.8) % Plt Count 457 H (150-400) X10^3/uL Neut % (Auto) Not Reportable (50-75) % Lymph % (Auto) Not Reportable (25-40) % [place] % (Auto) Not Reportable (3-14) % Eos % (Auto) Not Reportable (2-4) % Baso % (Auto) Not Reportable (0-2) % Neut # (Auto) (5134-3046) /uL Lymph # (Auto) Not Reportable (4521-8287) /uL [place] # (Auto) Not Reportable (0-900) /uL Eos # (Auto) (0-450) /uL Baso # (Auto) Not Reportable (0-100) /uL Total Counted 100 Seg Neutrophils % 61.0 (38-70) % Band Neutrophils % 16.0 H (3-7) % Lymphocytes % (Manual) 16.0 L (25-45) % Monocytes % (Manual) 3.0 (2-11) % Metamyelocytes % 3.0 H (-0) % Myelocytes % 1.0 H (-0) % Neutrophils # (Manual) 9240 H (9468-5041) /uL Platelet Estimate Increased on smear RBC Morphology Normal morphology PT (9.4-12.5) SECONDS INR (0.9-1.3) APTT (25.1-36.5) SECONDS ABG Sample Site Left radial ABG pH 7.17 L* (7.35-7.45) ABG pCO2 73.4 H* (35-45) mmHg ABG pO2 66 L (80-100) mmHg ABG HCO3 27 (23-27) mmol/L ABG Total CO2 29 H (23-27) mmol/L ABG O2 Saturation 86 L (95-100) % ABG Base Excess -2.0 (-2-3) mmol/L FiO2 100 Sodium (137-145) mmol/L Potassium (3.4-5.1) mmol/L Chloride (98-107) mmol/L Carbon Dioxide (22-32) mmol/L BUN (9-20) mg/dL Creatinine (0.66-1.25) mg/dL Estimated GFR (>60) mL/min BUN/Creatinine Ratio (6-22) Glucose (80-110) mg/dL Lactate (0.7-2.1) mmol/L Calcium (8.4-10.2) mg/dL Total Bilirubin (0.2-1.3) mg/dL AST (17-59) IU/L ALT (<50) IU/L Alkaline Phosphatase (38-126) U/L Total Creatine Kinase (55-170) U/L Troponin I (0.01-0.034) ng/mL Total Protein (6.3-8.2) g/dL Albumin (3.5-5.0) g/dL Globulin (1.7-4.1) g/dL Albumin/Globulin Ratio (1.0-2.8) Lipase (23-300) U/L Procalcitonin (<0.5) ng/mL Urine Color Yellow Urine Appearance Cloudy Urine pH 5.0 (4.5-8.0) Ur Specific [place] 1.020 (1.000-1.035) Urine Protein 2+ H (Negative) Urine Glucose (UA) Negative (Negative) g/dL Urine Ketones Negative (NEGATIVE) Urine Occult Blood 3+ H (Negative) Urine Nitrate Positive H (Negative) Urine Bilirubin 1+ H (NEGATIVE) Ur Bilirubin Confirm TNP Urine Urobilinogen 1.0 (0.2) E.U./dL Ur Leukocyte Esterase Negative (NEGATIVE) Urine RBC 5-10/hpf H (0-5/HPF) Urine WBC 1-5/hpf (0-5/HPF) Ur Squamous Epith Cells 0-1 /hpf (0-5/HPF) Amorphous Sediment 1+ Urine Bacteria Many (>30) H (None) Hyaline Casts 5-10/lpf (None) Ur Culture Indicated? Specimen cultured Vol Urine Centrifuged 10ml (spun) U Opiates 300ng/mL cut Positive H (Negative) Ur Oxycodone Screen Negative (Negative) Urine Methadone Screen Negative (Negative) Ur Barbiturates Screen Negative (Negative) U Tricyclic Antidepress Positive H (Negative) Ur Phencyclidine Scrn Negative (Negative) Ur Amphetamines Screen Negative (Negative) U Methamphetamines Scrn Negative (Negative) Ur MDMA Scrn (Ecstasy) Negative (Negative) U Benzodiazepines Scrn Negative (Negative) Urine Cocaine Screen Negative (Negative) U Marijuana (THC) Screen Negative (Negative) Urine Specific [place] (Normal) Ethyl Alcohol ( - 10) mg/dL Ur Creatinine (Normal) Chlamy pneumoniae PCR (Not Detect) Adenovirus (PCR) (Not Detect) B.parapertussis DNA PCR (Not Detecte) Coronavirus OC43 (PCR) (Not Detect) Coronavirus HKU1 (PCR) (Not Detect) Coronavirus 229E (PCR) (Not Detect) SARS-CoV-2 (PCR) (Not Detecte) Coronavirus NL63 (PCR) (Not Detect) Human Metapneumovir PCR (Not Detect) Influenza Type A (PCR) (Not Detect) Influenza Type B (PCR) (Not Detect) M. pneumoniae (PCR) (Not Detect) Parainfluenza 1 (PCR) (Not Detect) Parainfluenza 2 (PCR) (Not Detect) Parainfluenza 3 (PCR) (Not Detect) Parainfluenza 4 (PCR) (Not Detect) RSV (PCR) (Not Detect) Entero/Rhino (PCR) (Not Detect) 06/01/23 06/01/23 06/01/23 Range/Units 13:50 14:00 14:48 WBC (4.5-11.0) X10^3/uL RBC (4.5-5.9) X10^6/uL Hgb (13.5-17.5) g/dL Hct (41-53) % MCV (80-100) fL MCH (26-34) PG MCHC (30-36) % RDW (11.6-14.8) % Plt Count (150-400) X10^3/uL Neut % (Auto) (50-75) % Lymph % (Auto) (25-40) % [place] % (Auto) (3-14) % Eos % (Auto) (2-4) % Baso % (Auto) (0-2) % Neut # (Auto) (6366-5689) /uL Lymph # (Auto) (6043-2540) /uL [place] # (Auto) (0-900) /uL Eos # (Auto) (0-450) /uL Baso # (Auto) (0-100) /uL Total Counted Seg Neutrophils % (38-70) % Band Neutrophils % (3-7) % Lymphocytes % (Manual) (25-45) % Monocytes % (Manual) (2-11) % Metamyelocytes % (-0) % Myelocytes % (-0) % Neutrophils # (Manual) (5327-1207) /uL Platelet Estimate RBC Morphology PT (9.4-12.5) SECONDS INR (0.9-1.3) APTT (25.1-36.5) SECONDS ABG Sample Site ABG pH (7.35-7.45) ABG pCO2 (35-45) mmHg ABG pO2 (80-100) mmHg ABG HCO3 (23-27) mmol/L ABG Total CO2 (23-27) mmol/L ABG O2 Saturation (95-100) % ABG Base Excess (-2-3) mmol/L FiO2 Sodium (137-145) mmol/L Potassium (3.4-5.1) mmol/L Chloride (98-107) mmol/L Carbon Dioxide (22-32) mmol/L BUN (9-20) mg/dL Creatinine (0.66-1.25) mg/dL Estimated GFR (>60) mL/min BUN/Creatinine Ratio (6-22) Glucose (80-110) mg/dL Lactate 3.1 H (0.7-2.1) mmol/L Calcium (8.4-10.2) mg/dL Total Bilirubin (0.2-1.3) mg/dL AST (17-59) IU/L ALT (<50) IU/L Alkaline Phosphatase (38-126) U/L Total Creatine Kinase (55-170) U/L Troponin I 0.201 H* (0.01-0.034) ng/mL Total Protein (6.3-8.2) g/dL Albumin (3.5-5.0) g/dL Globulin (1.7-4.1) g/dL Albumin/Globulin Ratio (1.0-2.8) Lipase (23-300) U/L Procalcitonin (<0.5) ng/mL Urine Color Urine Appearance Urine pH Normal (4.5-8.0) Ur Specific [place] (1.000-1.035) Urine Protein (Negative) Urine Glucose (UA) (Negative) g/dL Urine Ketones (NEGATIVE) Urine Occult Blood (Negative) Urine Nitrate (Negative) Urine Bilirubin (NEGATIVE) Ur Bilirubin Confirm Urine Urobilinogen (0.2) E.U./dL Ur Leukocyte Esterase (NEGATIVE) Urine RBC (0-5/HPF) Urine WBC (0-5/HPF) Ur Squamous Epith Cells (0-5/HPF) Amorphous Sediment Urine Bacteria (None) Hyaline Casts (None) Ur Culture Indicated? Vol Urine Centrifuged U Opiates 300ng/mL cut (Negative) Ur Oxycodone Screen (Negative) Urine Methadone Screen (Negative) Ur Barbiturates Screen (Negative) U Tricyclic Antidepress (Negative) Ur Phencyclidine Scrn (Negative) Ur Amphetamines Screen (Negative) U Methamphetamines Scrn (Negative) Ur MDMA Scrn (Ecstasy) (Negative) U Benzodiazepines Scrn (Negative) Urine Cocaine Screen (Negative) U Marijuana (THC) Screen (Negative) Urine Specific [place] Normal (Normal) Ethyl Alcohol ( - 10) mg/dL Ur Creatinine Normal (Normal) Chlamy pneumoniae PCR Not detected (Not Detect) Adenovirus (PCR) Not detected (Not Detect) B.parapertussis DNA PCR Not detected (Not Detecte) Coronavirus OC43 (PCR) Not detected (Not Detect) Coronavirus HKU1 (PCR) Not detected (Not Detect) Coronavirus 229E (PCR) Not detected (Not Detect) SARS-CoV-2 (PCR) Detected H (Not Detecte) Coronavirus NL63 (PCR) Not detected (Not Detect) Human Metapneumovir PCR Not detected (Not Detect) Influenza Type A (PCR) Not detected (Not Detect) Influenza Type B (PCR) Not detected (Not Detect) M. pneumoniae (PCR) Not detected (Not Detect) Parainfluenza 1 (PCR) Not detected (Not Detect) Parainfluenza 2 (PCR) Not detected (Not Detect) Parainfluenza 3 (PCR) Not detected (Not Detect) Parainfluenza 4 (PCR) Not detected (Not Detect) RSV (PCR) Not detected (Not Detect) Entero/Rhino (PCR) Not detected (Not Detect) 06/01/23 Range/Units 15:49 WBC (4.5-11.0) X10^3/uL RBC (4.5-5.9) X10^6/uL Hgb (13.5-17.5) g/dL Hct (41-53) % MCV (80-100) fL MCH (26-34) PG MCHC (30-36) % RDW (11.6-14.8) % Plt Count (150-400) X10^3/uL Neut % (Auto) (50-75) % Lymph % (Auto) (25-40) % [place] % (Auto) (3-14) % Eos % (Auto) (2-4) % Baso % (Auto) (0-2) % Neut # (Auto) (3619-2532) /uL Lymph # (Auto) (5097-3413) /uL [place] # (Auto) (0-900) /uL Eos # (Auto) (0-450) /uL Baso # (Auto) (0-100) /uL Total Counted Seg Neutrophils % (38-70) % Band Neutrophils % (3-7) % Lymphocytes % (Manual) (25-45) % Monocytes % (Manual) (2-11) % Metamyelocytes % (-0) % Myelocytes % (-0) % Neutrophils # (Manual) (5876-7444) /uL Platelet Estimate RBC Morphology PT (9.4-12.5) SECONDS INR (0.9-1.3) APTT (25.1-36.5) SECONDS ABG Sample Site Left radial ABG pH 7.26 L* (7.35-7.45) ABG pCO2 58.2 H (35-45) mmHg ABG pO2 92 (80-100) mmHg ABG HCO3 26 (23-27) mmol/L ABG Total CO2 28 H (23-27) mmol/L ABG O2 Saturation 95 (95-100) % ABG Base Excess -1.0 (-2-3) mmol/L FiO2 100 Sodium (137-145) mmol/L Potassium (3.4-5.1) mmol/L Chloride (98-107) mmol/L Carbon Dioxide (22-32) mmol/L BUN (9-20) mg/dL Creatinine (0.66-1.25) mg/dL Estimated GFR (>60) mL/min BUN/Creatinine Ratio (6-22) Glucose (80-110) mg/dL Lactate (0.7-2.1) mmol/L Calcium (8.4-10.2) mg/dL Total Bilirubin (0.2-1.3) mg/dL AST (17-59) IU/L ALT (<50) IU/L Alkaline Phosphatase (38-126) U/L Total Creatine Kinase (55-170) U/L Troponin I (0.01-0.034) ng/mL Total Protein (6.3-8.2) g/dL Albumin (3.5-5.0) g/dL Globulin (1.7-4.1) g/dL Albumin/Globulin Ratio (1.0-2.8) Lipase (23-300) U/L Procalcitonin (<0.5) ng/mL Urine Color Urine Appearance Urine pH (4.5-8.0) Ur Specific [place] (1.000-1.035) Urine Protein (Negative) Urine Glucose (UA) (Negative) g/dL Urine Ketones (NEGATIVE) Urine Occult Blood (Negative) Urine Nitrate (Negative) Urine Bilirubin (NEGATIVE) Ur Bilirubin Confirm Urine Urobilinogen (0.2) E.U./dL Ur Leukocyte Esterase (NEGATIVE) Urine RBC (0-5/HPF) Urine WBC (0-5/HPF) Ur Squamous Epith Cells (0-5/HPF) Amorphous Sediment Urine Bacteria (None) Hyaline Casts (None) Ur Culture Indicated? Vol Urine Centrifuged U Opiates 300ng/mL cut (Negative) Ur Oxycodone Screen (Negative) Urine Methadone Screen (Negative) Ur Barbiturates Screen (Negative) U Tricyclic Antidepress (Negative) Ur Phencyclidine Scrn (Negative) Ur Amphetamines Screen (Negative) U Methamphetamines Scrn (Negative) Ur MDMA Scrn (Ecstasy) (Negative) U Benzodiazepines Scrn (Negative) Urine Cocaine Screen (Negative) U Marijuana (THC) Screen (Negative) Urine Specific [place] (Normal) Ethyl Alcohol ( - 10) mg/dL Ur Creatinine (Normal) Chlamy pneumoniae PCR (Not Detect) Adenovirus (PCR) (Not Detect) B.parapertussis DNA PCR (Not Detecte) Coronavirus OC43 (PCR) (Not Detect) Coronavirus HKU1 (PCR) (Not Detect) Coronavirus 229E (PCR) (Not Detect) SARS-CoV-2 (PCR) (Not Detecte) Coronavirus NL63 (PCR) (Not Detect) Human Metapneumovir PCR (Not Detect) Influenza Type A (PCR) (Not Detect) Influenza Type B (PCR) (Not Detect) M. pneumoniae (PCR) (Not Detect) Parainfluenza 1 (PCR) (Not Detect) Parainfluenza 2 (PCR) (Not Detect) Parainfluenza 3 (PCR) (Not Detect) Parainfluenza 4 (PCR) (Not Detect) RSV (PCR) (Not Detect) Entero/Rhino (PCR) (Not Detect) Imaging Data CT scan - head: Radiologist's Impression: [address] [address] [address] Scan Report Signed Patient: Ramesh Reed MR#: [id number] : 1950 Acct:[id number] Age/Sex: 72 / M Date of Service: 06/01/23 Loc: ED Accession Number: [id number] Procedure: CT Stroke Ordering Provider: Blank Ravi D.O. PROCEDURE: CT STROKE INDICATIONS: confusion wor, not acting right, sudden onset slurred speech TECHNIQUE: Noncontrast 4.5 mm thick angled axial sections acquired from the foramen magnum to the vertex, with coronal reformats. For radiation dose reduction, the following was used: automated exposure control, adjustment of mA and/or kV according to patient size. COMPARISON: None. FINDINGS: Image quality: Diagnostic. CSF spaces: Basal cisterns are patent. No extra-axial fluid collections. Ventricles are normal in size and shape. Brain: No midline shift. No intracranial masses or hemorrhage. [place]-white matter interface is within normal limits. Skull and face: Calvarium and visualized facial bones are intact, without suspicious lesions. Sinuses: Partial opacification of the left maxillary sinus. Mucosal thickening in the right maxillary sinus. Partial opacification of the ethmoid air cells. Opacification of the left frontal sinus. Mild mucosal thickening in the right frontal sinus. Scant mucosal thickening in the sphenoid sinuses. Mastoids are clear. IMPRESSION: No acute intracranial hemorrhage. Paranasal sinusitis. Comment: Findings were discussed with Blank Vega at 11:32 AM on 06/01/2023. This study fulfills neurological imaging criteria for inclusion or exclusion of acute stroke therapies based on available published neurological imaging guidelines. Dictated by: Mckay iPllai M.D. on 06/01/2023 at 11:28 Approved by: Mckay Pillai M.D. on 06/01/2023 at 11:33 CT chest/abd/pelvis: Radiologist's Impression: [place] [address] CT Scan Report Signed Patient: Ramesh Reed MR#: [id number] : 1950 Acct:[id number] Age/Sex: 72 / M Date of Service: 06/01/23 Loc: ED Accession Number: [id number] Procedure: CT chest abd pel w con Ordering Provider: Blank Ravi D.O. PROCEDURE: CT CHEST ABD PEL W CON INDICATIONS: disoriented, altered, vomiting green, ? weakness TECHNIQUE: After the administration of intravenous contrast, 5 mm thick sections acquired from the lung apices to the symphysis. 5 mm coronal and sagittal reformats were performed, with additional 7 mm MIP reformats through the lungs. For radiation dose reduction, the following was used: automated exposure control, adjustment of mA and/or kV according to patient size. COMPARISON: None. FINDINGS: Image quality: Excellent. CHEST: Lower Neck: No enlarged lymph nodes. Thyroid: Left thyroid nodule measuring 35 mm. Axillae: No enlarged lymph nodes. Chest Wall: Unremarkable. Lungs and Pleura: No pneumothorax . Small right pleural effusion. Mild left greater than right patchy bilateral lower lobe and left upper lobe densities. Heart: Heart size is normal. No pericardial effusion. Thoracic Vessels: The aorta and pulmonary arteries demonstrate normal size. Mediastinum and [place]: No enlarged lymph nodes. Esophagus: Moderate diffuse esophageal wall thickening.. ABDOMEN: Liver: No solid mass. Gallbladder: No radiopaque gallstones or wall thickening. Biliary ducts: No biliary dilation. Pancreas: No ductal dilation. Spleen: Size is within normal limits. Adrenal Glands: No adrenal nodules. Kidneys and Ureters: No hydronephrosis. No solid mass. No complex renal cystic lesion which requires follow up. Stomach and Bowel: Multiple moderately distended loops of proximal and mid small bowel. Distal ileum is decompressed. Transition between dilated and nondilated small bowel is not well seen. Appendix is normal. Colon is nondistended. Peritoneum: No abnormal intraperitoneal fluid. No free air. Ventral Wall: No significant ventral hernia. Abdominal Nodes: No retroperitoneal or mesenteric adenopathy by size criteria. Vessels: Aorta and inferior vena cava are normal in size. PELVIS: Pelvic Organs: Unremarkable. Bladder: No bladder wall thickening, accounting for underdistention. Pelvic Nodes: No enlarged lymph nodes. Miscellaneous: Large bowel containing left inguinal hernia containing a loop of sigmoid colon, measuring 13 cm. Small bowel containing right inguinal hernia measuring roughly 9 cm. Bones: Multiple sclerotic foci throughout the axial and appendicular skeleton. IMPRESSION: 1. Small-bowel obstruction associated with small bowel dilatation as well as gastric dilatation. 2. Bowel containing bilateral inguinal hernias. 3. Normal appendix. 4. Esophageal thickening, consistent with ischemia, infection, or inflammation. 5. Left thyroid nodule. Further assessment with nonemergent outpatient follow-up ultrasound examination is recommended. 6. Bilateral lower lung predominant pneumonia versus aspiration. 7. Moderate osseous metastatic disease. Dictated by: Valeria Scanlon M.D. on 06/01/2023 at 12:10 Approved by: Valeria Scanlon M.D. on 06/01/2023 at 12:16 Chest x-ray: Radiologist's Impression: [address] [address] XRay Report Signed Patient: Ramesh Reed MR#: [id number] : 1950 Acct:[id number] Age/Sex: 72 / M Date of Service: 06/01/23 Loc: ED Accession Number: [id number] Procedure: XR chest 1V Ordering Provider: Blank Ravi D.O. PROCEDURE: XR CHEST 1V INDICATIONS: disoriented, altered, vomiting green, ? weakness TECHNIQUE: One view of the chest was acquired. COMPARISON: None. FINDINGS: Surgical changes and devices: NGT is present, which extends below the level of the film. ETT is present, tip of which is in expected location. Lungs and pleura: There is moderate right and mild left bilateral mid lung airspace opacity.. No pleural effusions or pneumothorax. Mediastinum: Mediastinal contours appear normal. Heart size is normal. Bones and chest wall: No suspicious bony lesions. Overlying soft tissues appear unremarkable. IMPRESSION: Bilateral pneumonia. Dictated by: Valeria Scanlon M.D. on 06/01/2023 at 12:29 Approved by: Valeria Scanlon M.D. on 06/01/2023 at 12:29 ECG Data Attestation: I personally reviewed and interpreted this ECG as follows: Interpretation: Sinus rhythm rate of 96 VA 144 QRS is [address] No [address] elevation. Nonspecific change. Treatment and disposition Code Status and discussions:: Full code discussed with . Okay with any interventions at this time. MDM Narrative Medical decision making narrative: Patient taken to CT for potential code stroke versus other. While in CT patient had significant amount of green bile like emesis. Patient was return, received antiemetics appear to be protecting airway appropriately and felt appropriate to return to CT. Had had chest abdomen pelvis obtained. Returned to room, patient did not continued to have emesis but concern for airway protection and plan to intubate. Discussed with patient's plan for intubation potential for CPR she is agreeable states full code. Initial head CT is negative, prelim read for chest abdomen pelvis shows significant distention of stomach suspect some form of obstruction. During intubation patient began to have significant amount of green emesis out, had significant hypoxia and patient was difficult airway. Unable to bag secondary to emesis. Continued attempts with ET tube and patient had rhythm change appeared to be V-tach patient lost pulses. Pacer pads were placed while CPR was initiated for approximately 2-3 minutes he did receive 1 mg of epinephrine. During attempted intubation patient regained pulses. Anesthesia assisted with intubation and patient was intubated by anesthesia. Patient afterwards continues to be somewhat hypoxic but had significant amount of green emesis, chest x-ray post shows changes consistent with some aspiration. ET tube appears in place. NG tube was placed as well and has had persistent output. Patient's was updated. Initial labs obtained including CBC shows platelets of 457, normal white count, sodium of 130, chloride 90, otherwise normal LFTs, glucose of 161 alk-phos 398 but negative troponin. Broke out was negative as well. ETOH was negative. Patient being sedated with fentanyl Ativan push and fentanyl tripping started. Patient has not been hypotensive post intubation. Does have some tachycardia. Obtaining EKG. Repeat labs including CBC, CMP and lactate. White count increased at 12, lactate is 4 ABg repeated acidosis, hypercapnia with a PaO2 of 66 and a bicarb of 26. EKG showed, NSR. No clear ST elevation depression. Plan for transfer patient had significant aspiration will likely need intensive care unit with pulmonology potentially will develop ARDS. Patient was started on nor epi drip has been map of 65-70 with systolic in the 90s over time. Initially blood pressure was in the 150s to 130s after intubation. Spoke with residential child care counselor at [facility], reviewed findings workup thus far she asked for CT angio of head and neck with report back before bed assignment and transfer but does accept. Also asked for repeat troponin, ABG and lactate. Reviewed findings thus far. Patient onset of symptoms is unclear there has potential for stroke was described as disoriented and altered by his throughout the morning prior to arrival exact onset was unclear sounds like he was normal yesterday. Patient was walking into the department and conversant with staff but did have slurred speech and alterations and then developed significant change. CT angio was obtained does show right MCA thrombus, right hemispheric infarction with cerebral edema. High-grade stenosis proximal right ICA. Bilateral pulmonary opacities a new patient consistent with significant aspiration event during intubation. Central line was placed by myself, post CXR appears appropriate no no pneumothorax appreciated. When appears in place. Spoke with Neurology at [facility] reviewed images with them they would like patient down for potential neuro intervention as quickly as possible. Patient may potentially be a candidate. Discussed unclear timeline of onset patient was walking ambulating into the department but had had some changes prior to arrival. Repeat ABG does show some improvement pH of 7.25 pCO2 of 58 PaO2 of 92, bicarb of 25. Updated on findings for MCA clot showing large stroke, does appear to have some changes consistent with bowel obstruction on CT also has many osseous lesions throughout concern for potential metastatic cancer but unclear source. All this was shared with patient's . We discussed he is quite critical and potentially unstable and could code again and potentially . Critical Care Time Critical Care Time Critical Care Time: Yes Total Critical Care Time: 55 Attestation: The high probability of a clinically significant, sudden or life threatening deterioration of the [cardiac, neuro, pulm] system(s) required my full and direct attention, intervention and personal management. The aggregate critical care time was [] minutes. This time is in addition to time spent performing reported procedures but includes the following: [x] Data Review and interpretation [x] Patient assessment and monitoring of vital signs [x] Documentation [x] Medication orders and management Discharge Plan Departure Patient Disposition: [facility] Clinical Impression: Stroke, Bowel obstruction, Acute hypoxemic respiratory failure, Aspiration pneumonia Prescriptions: No Action tamsulosin [Flomax] 0.4 mg capsule 0.8 mg PO DAILY Qty: 180 3RF Referrals: Miscellaneous,DoctorMD [Primary Care Provider] -
[2023-06-01 11:23] LABS: Troponin I < 0.012 ng/mL (0.01-0.034)
[2023-06-01 11:28] LABS: Procalcitonin 0.32 ng/mL (<0.5)
--- NOTE | 2023-06-01 11:28 | PC.NURSE ---
During triage pt was alert and oriented and ambulatory. He was also answering questions appropriately. was concerned pt was not acting his normal self. At 1040 RN sat pt down in [place] to start and IV and draw lab work. At 1042 pt became unresponsive, garbled speech and left side facial droop. LKW 1040. Pt's states the was a dramatic change. RN called code stroke and pt was transferred to [facility] from chair. Myself and another RN went to CT with pt. While in CT pt began to have projectile green vomit. Dr. Ravi was called to CT and pt was transferred to room 1. Pt's is at bedside. Airway intact and maintaining sat >90%
[2023-06-01] MEDS: MORPHINE 4 MG/ML INJ IV (11:29)
[2023-06-01] MEDS: SODIUM CHLORIDE 0.9% 1,000 ML 1000 ML IV ×2 (11:38→15:15)
[2023-06-01] MEDS: KETAMINE 500 MG/5 ML INJ 100 MG IV (11:40)
[2023-06-01] MEDS: ETOMIDATE 2 MG/ML 10 ML VIAL 10 MG IV (11:41)
[2023-06-01] MEDS: SUCCINYLCHOLINE 200 MG/10 ML VIAL 100 MG IV (11:43)
[2023-06-01] MEDS: fentaNYL 100 MCG/2 ML INJ 50 MCG IV (11:55)
[2023-06-01] MEDS: fentaNYL 1,000 MCG in DEXTROSE 5% IN WATER 230 ML 15.479 MCG IV (12:12)
[2023-06-01 12:13] LABS: Hematocrit 40.3 % (41-53); Hemoglobin 13.2 g/dL (13.5-17.5); Mean Corpuscular HGB Conc 32.8 % (30-36); Mean Corpuscular Hemoglobin 28.7 PG (26-34); Mean Corpuscular Volume 87.5 fL (80-100); Platelet Count 457 X10^3/uL (150-400); Red Cell Distribution Width 14.7 % (11.6-14.8)
[2023-06-01] MEDS: LORazepam 2 MG/ML INJ 1 MG IV ×2 (12:13→14:20)
[2023-06-01 12:14] LABS: PCO2 ABG 48.5 mmHg (35-45); pH ABG 7.38 (7.35-7.45)
[2023-06-01 12:15] LABS: PO2 ABG 45 mmHg (80-100)
[2023-06-01 12:19] LABS: Allen Test for ABG Passed? Yes, Passed; Blood Gas Collection Site Left Radial; Fractionated Inspired Oxygen 40; HCO3 ABG 29 mmol/L (23-27); Oxygen Saturation ABG 79 % (95-100); TCO2 ABG 30 mmol/L (23-27)
[2023-06-01 12:21] LABS: Alanine Aminotransferase 22 IU/L (<50); Albumin 3.3 g/dL (3.5-5.0); Alkaline Phosphatase 343 U/L (38-126); Aspartate Aminotransferase 28 IU/L (17-59); BUN Creatinine Ratio 26.6 (6-22); Bilirubin Total 0.6 mg/dL (0.2-1.3); Blood Urea Nitrogen 33 mg/dL (9-20); Calcium 7.9 mg/dL (8.4-10.2); Carbon Dioxide 26 mmol/L (22-32); Chloride 92 mmol/L (98-107); Estimated Glomerular Filt Rate > 60 mL/min (>60); Globulin 3.3 g/dL (1.7-4.1); Glucose 202 mg/dL (80-110); HEMOLYSIS < 15 (0-50); Sodium 129 mmol/L (137-145); Total Protein 6.6 g/dL (6.3-8.2)
[2023-06-01 12:22] LABS: Lactate (Lactic Acid) 4.4 mmol/L (0.7-2.1)
[2023-06-01 12:25] LABS: Add Manual Diff / Slide Review YES
[2023-06-01] MEDS: PIPERACILLIN/TAZO 4.5 GM in SODIUM CHLORIDE 0.9% 100 ML IV (12:34)
[2023-06-01 12:39] LABS: Neutrophils Absolute Manual 9240 /uL (3000-5900); Total Cells Counted 100
[2023-06-01 12:40] LABS: Platelet Estimate Increased on smear; RBC Morphology Normal Morphology
--- NOTE | 2023-06-01 12:46 | RT ---
Was called down to ER for an EKG on PT for code Stroke. When I arrived patient wasn't doing well and was hurried off to CT. While at CT patient was vomiting uncontrollably and was brought back to room. MD requested ABG on patient secondary to unreliable sat monitor. Patient was taken down to CT once again and was able to get the image completed. Secondary to the results of ABG, MD decided it was best to intubate for airway protection. While bagging patient he started to vomit a lot and anesthesia was called to help with intubation. Patient coded and CPR was initiated. After about 6 min of CPR patient regained pulse. Anesthesia was able to get a 7.5 ETT in patient and rests 25@teeth. Patient was put on ventilator on AC/VC 500/18/+5/100%.
[2023-06-01 12:59] LABS: pH ABG 7.17 (7.35-7.45)
[2023-06-01 13:00] LABS: Allen Test for ABG Passed? Yes, Passed; Blood Gas Collection Site Left Radial; Fractionated Inspired Oxygen 100; HCO3 ABG 27 mmol/L (23-27); Oxygen Saturation ABG 86 % (95-100); PCO2 ABG 73.4 mmHg (35-45); PO2 ABG 66 mmHg (80-100); TCO2 ABG 29 mmol/L (23-27)
[2023-06-01] MEDS: LACTATED RINGERS 1,000 ML 1000 ML IV (13:05)
[2023-06-01 13:43] LABS: Reflexed Lactate in 2 Hours Y
--- NOTE | 2023-06-01 13:59 | DI.CT.S_ITS ---
PROCEDURE: CT ANGIO HEAD AND NECK INDICATIONS: ? cva TECHNIQUE: After the administration of intravenous contrast, 1 mm thick sections acquired from the aortic arch through the [place]. 3-dimensional stjqgxa-vetaoysra-gawblflhlx (MIP) and/or volume rendering reformats were acquired of the central intracranial vasculature and neck separately. For radiation dose reduction, the following was used: automated exposure control, adjustment of mA and/or kV according to patient size. COMPARISON: [facility], CT, CT CHEST ABD PEL W CON, 06/01/2023, 11:20. the [facility], CT, CT STROKE, 06/01/2023, 11:20. FINDINGS: Image quality: Degraded by motion artifact. BRAIN: CSF spaces: Ventricles are normal in size and shape. Basal cisterns are patent. No extra-axial fluid collections. Brain: Diffuse right-sided sulcal effacement and low-density with loss of normal hernandez-white differentiation. Skull and face: Calvarium and facial bones appear intact, without suspicious lesions. Orbits appear normal. Sinuses: Moderate right and severe left frontal sinus mucosal thickening. Severe bilateral ethmoid sinus mucosal thickening. Moderate left and mild right maxillary sinus mucosal thickening. Mastoids are clear. HEAD CT ANGIOGRAPHY: Anterior circulation: Mild calcific stenosis of the bilateral cavernous segments of the internal carotid arteries. The flow within the paired anterior cerebral arteries is normal and symmetric. There is no flow seen within the right middle cerebral artery. Left middle cerebral artery flows within normal limits. The anterior communicating artery is seen. No aneurysms are seen. Posterior circulation: Visualized portions of the vertebral arteries demonstrate normal caliber, and join to form a normal appearing basilar artery. Flow within the posterior cerebral arteries is normal and symmetric. No aneurysms are seen. NECK CT ANGIOGRAPHY: Carotid system: The great vessels demonstrate a conventional anatomy as they arise from the aortic arch. The origins of the common carotid arteries appear patent. The common carotid arteries demonstrate normal caliber and courses. Roughly 10% calcific origin stenosis of the left internal carotid artery. Suboptimally visualized, roughly 90% origin stenosis of the right internal carotid artery. Posterior circulation: The right vertebral artery origin is not well seen secondary to motion artifact. Left vertebral artery origin is patent. Remainder of the vertebral arteries are suboptimally visualized secondary to motion artifact but are grossly patent as visualized. Soft tissues: Left thyroid mass measuring 43 mm. Moderate multifocal ill-defined patchy opacities within the visualized lungs, some of which demonstrate a nodular configuration, new since the prior examination. Severe airspace opacity within the superior segment left lower lobe. Bones: Multiple sclerotic foci throughout the visualized osseous structures. Visualized cervical spine appears normally aligned. IMPRESSION: 1. 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 Findings discussed with Dr. Ravi on 06/01/2023 at 14:53. 2. Suboptimally visualized, probable high-grade stenosis of the proximal right internal carotid artery. 3. Bilateral pulmonary opacities, new compared to CT examination performed earlier on same day, suggestive of aspiration/atelectasis. 4. Bony metastatic disease. 5. Left thyroid mass. 6. Sinus disease. Any quantitative measurements of stenosis were performed using NASCET criteria. Dictated by: Valeria Scanlon M.D. on 06/01/2023 at 14:48 Approved by: Valeria Scanlon M.D. on 06/01/2023 at 15:06
[2023-06-01 14:05] LABS: Appearance Urine UA CLOUDY; Bilirubin Urine UA 1+ (NEGATIVE); Color Urine UA YELLOW; Glucose Urine UA NEGATIVE (Negative); Ketones Urine UA NEGATIVE (NEGATIVE); Leukocyte Esterase Urine UA NEGATIVE (NEGATIVE); Nitrite Urine UA POSITIVE (Negative); Occult Blood Urine UA 3+ (Negative); Protein Urine UA 2+ (Negative)
--- NOTE | 2023-06-01 14:18 | PC.NURSE ---
LAW WRITER note: Regarding pt. transfer, this gage maker contacted [facility], [facility], Quyen Cantrell, ED transfer report was faxed to each facility. [facility]ly [facility] transfer center Allergist/Immunologist Dr. Roro Kumar and accepted. Waiting on ct angio report to generate to fax and reconnect the providers.
[2023-06-01 14:22] LABS: Lactate 2HR (Lactic Acid Rflx) 3.1 mmol/L (0.7-2.1)
[2023-06-01 14:23] LABS: Amorphous Sediment Urine 1+; Bacteria Urine Many (>30); RBC Urine 5-10/HPF (0-5/HPF); Squamous Epithelial Cell Urine 0-1 /HPF (0-5/HPF); Urine Volume 10mL (spun); WBC Urine 1-5/HPF (0-5/HPF)
[2023-06-01 14:24] LABS: Culture Indicated Urine Specimen Cultured; Hyaline Casts Urine 5-10/LPF; UR Morphine/Opiate cutoff 300 Positive (Negative); Ur Creatinine Normal (Normal); Ur Specific Gravity Normal (Normal); Urine Amphetamines Negative (Negative); Urine Barbiturates Negative (Negative); Urine Benzodiazepines Negative (Negative); Urine Cocaine Negative (Negative); Urine MDMA Negative (Negative); Urine Methadone Negative (Negative); Urine Methamphetamines Negative (Negative); Urine Oxycodone Negative (Negative); Urine Phencyclidine Negative (Negative); Urine Tetrahydrocannabinol Negative (Negative); Urine Tricyclic Antidepressant Positive (Negative); Urine pH Normal (Normal)
--- NOTE | 2023-06-01 14:32 | P.CONS_ITS ---
History of Present Illness Consult details Date Patient Seen: 06/01/23 Time Patient Seen: 11:45 Chief complaint: uti disoriented Reason for consult: Airway Narrative: i was called for stat intubation in this pt during a code. There was a copious partially digested food in oropharynx. Suctioned and intubated with DL, ETT 7.5. VSS. Pt converted to sinus tach. Meds Home Medications and Allergies Home Medications Medication Instructions Recorded Confirmed Type tamsulosin 0.4 mg capsule (Flomax) 0.8 mg (2 x 0.4 mg) PO DAILY #180 02/25/23 04/29/23 Rx caps Allergies Allergy/AdvReac Type Severity Reaction Status Date / Time No Known Drug Allergies Allergy Verified 01/12/23 13:12 Exam Vital Signs (past 8 hours): - 06/01/23 10:34 06/01/23 11:07 06/01/23 11:10 Temperature 97.1 F L Pulse Rate 109 H 92 H 147 H Respiratory Rate 18 33 H 25 H Blood Pressure 151/95 H Pulse Oximetry 97 85 L 90 L Oxygen Delivery Method Room Air 06/01/23 11:10 06/01/23 11:30 06/01/23 11:52 Temperature Pulse Rate 120 H 131 H Respiratory Rate 18 23 Blood Pressure 167/86 H Pulse Oximetry 83 L Oxygen Delivery Method 06/01/23 11:52 06/01/23 12:00 06/01/23 12:08 Temperature Pulse Rate 154 H 131 H Respiratory Rate 24 29 H Blood Pressure 125/74 Pulse Oximetry 87 L 89 L Oxygen Delivery Method 06/01/23 12:08 06/01/23 12:09 06/01/23 12:09 Temperature Pulse Rate 127 H Respiratory Rate 26 H Blood Pressure 111/56 L 106/47 L Pulse Oximetry 88 L Oxygen Delivery Method 06/01/23 12:12 06/01/23 12:12 06/01/23 12:15 Temperature Pulse Rate 131 H 101 H Respiratory Rate 28 H 31 H Blood Pressure 102/52 L Pulse Oximetry 87 L 83 L Oxygen Delivery Method 06/01/23 12:15 06/01/23 12:18 06/01/23 12:18 Temperature Pulse Rate 140 H Respiratory Rate 26 H Blood Pressure 94/54 L 72/50 L Pulse Oximetry 85 L Oxygen Delivery Method 06/01/23 12:19 06/01/23 12:19 06/01/23 12:21 Temperature Pulse Rate 132 H Respiratory Rate 26 H Blood Pressure 76/51 L 115/59 L Pulse Oximetry 85 L Oxygen Delivery Method 06/01/23 12:21 06/01/23 12:24 06/01/23 12:24 Temperature Pulse Rate 129 H 145 H Respiratory Rate 31 H 29 H Blood Pressure 95/65 Pulse Oximetry 85 L 83 L Oxygen Delivery Method 06/01/23 12:27 06/01/23 12:27 06/01/23 12:30 Temperature Pulse Rate 101 H Respiratory Rate 31 H Blood Pressure 91/46 L 98/55 L Pulse Oximetry 84 L Oxygen Delivery Method 06/01/23 12:30 06/01/23 12:33 06/01/23 12:33 Temperature Pulse Rate 93 H 96 H Respiratory Rate 27 H 27 H Blood Pressure 98/50 L Pulse Oximetry 85 L 86 L Oxygen Delivery Method 06/01/23 12:36 06/01/23 12:36 06/01/23 12:39 Temperature Pulse Rate 99 H 96 H Respiratory Rate 28 H 31 H Blood Pressure 90/54 L Pulse Oximetry 84 L 85 L Oxygen Delivery Method 06/01/23 12:39 06/01/23 12:42 06/01/23 12:42 Temperature Pulse Rate 97 H Respiratory Rate 28 H Blood Pressure 89/52 L 90/52 L Pulse Oximetry 86 L Oxygen Delivery Method 06/01/23 12:45 06/01/23 12:45 06/01/23 12:48 Temperature Pulse Rate 96 H Respiratory Rate 30 H Blood Pressure 89/54 L 87/53 L Pulse Oximetry 85 L Oxygen Delivery Method 06/01/23 12:48 06/01/23 12:58 06/01/23 12:58 Temperature Pulse Rate 96 H 96 H Respiratory Rate 33 H 33 H Blood Pressure 99/52 L Pulse Oximetry 84 L 89 L Oxygen Delivery Method 06/01/23 13:00 06/01/23 13:00 06/01/23 13:03 Temperature Pulse Rate 96 H 96 H Respiratory Rate 31 H 33 H Blood Pressure 95/50 L Pulse Oximetry 89 L 90 L Oxygen Delivery Method 06/01/23 13:03 06/01/23 13:06 06/01/23 13:06 Temperature Pulse Rate 96 H Respiratory Rate 32 H Blood Pressure 97/51 L 98/56 L Pulse Oximetry 91 Oxygen Delivery Method 06/01/23 13:09 06/01/23 13:09 06/01/23 13:12 Temperature Pulse Rate 95 H 92 H Respiratory Rate 35 H 32 H Blood Pressure 92/55 L Pulse Oximetry 92 90 L Oxygen Delivery Method 06/01/23 13:12 06/01/23 13:15 06/01/23 13:15 Temperature Pulse Rate 93 H Respiratory Rate 37 H Blood Pressure 91/53 L 91/50 L Pulse Oximetry 91 Oxygen Delivery Method 06/01/23 13:18 06/01/23 13:18 06/01/23 13:21 Temperature Pulse Rate 93 H 93 H Respiratory Rate 36 H 37 H Blood Pressure 99/55 L Pulse Oximetry 90 L 90 L Oxygen Delivery Method 06/01/23 13:21 06/01/23 13:24 06/01/23 13:24 Temperature Pulse Rate 95 H Respiratory Rate 36 H Blood Pressure 102/53 L 101/54 L Pulse Oximetry 91 Oxygen Delivery Method 06/01/23 13:27 06/01/23 13:27 06/01/23 13:30 Temperature Pulse Rate 94 H 96 H Respiratory Rate 39 H 37 H Blood Pressure 97/52 L Pulse Oximetry 90 L 90 L Oxygen Delivery Method 06/01/23 13:30 06/01/23 13:33 06/01/23 13:33 Temperature Pulse Rate 95 H Respiratory Rate 39 H Blood Pressure 98/54 L 100/56 L Pulse Oximetry 91 Oxygen Delivery Method 06/01/23 13:36 06/01/23 13:36 06/01/23 13:39 Temperature Pulse Rate 95 H 93 H Respiratory Rate 36 H 39 H Blood Pressure 99/58 L Pulse Oximetry 91 92 Oxygen Delivery Method 06/01/23 13:39 06/01/23 13:42 06/01/23 13:42 Temperature Pulse Rate 96 H Respiratory Rate 37 H Blood Pressure 102/59 L 106/56 L Pulse Oximetry 91 Oxygen Delivery Method 06/01/23 13:45 06/01/23 13:45 Temperature Pulse Rate 96 H Respiratory Rate 52 H Blood Pressure 104/57 L Pulse Oximetry 91 Oxygen Delivery Method Oxygen Delivery Method Room Air Objective Labs 06/01/23 12:07 06/01/23 11:55 Labs: Laboratory Results - last 24 hr 06/01/23 06/01/23 06/01/23 10:55 11:31 11:55 WBC 11.0 RBC 5.12 Hgb 15.1 Hct 43.8 MCV 85.6 MCH 29.5 MCHC 34.5 RDW 14.2 Plt Count 457 H Neut % (Auto) 81.9 H Lymph % (Auto) 7.2 L [place] % (Auto) 10.7 Eos % (Auto) 0.0 L Baso % (Auto) 0.2 Neut # (Auto) 9000 H Lymph # (Auto) 800 L [place] # (Auto) 1200 H Eos # (Auto) 0 Baso # (Auto) 0 Total Counted Seg Neutrophils % Band Neutrophils % Lymphocytes % (Manual) Monocytes % (Manual) Metamyelocytes % Myelocytes % Neutrophils # (Manual) Platelet Estimate RBC Morphology PT 14.2 H INR 1.2 APTT 28 ABG Sample Site Left radial ABG pH 7.38 ABG pCO2 48.5 H ABG pO2 45 L* ABG HCO3 29 H ABG Total CO2 30 H ABG O2 Saturation 79 L* ABG Base Excess 3.0 FiO2 40 Sodium 130 L 129 L Potassium 4.3 4.0 Chloride 90 L 92 L Carbon Dioxide 27 26 BUN 35 H 33 H Creatinine 0.94 1.24 Estimated GFR > 60 > 60 BUN/Creatinine Ratio 37.2 H 26.6 H Glucose 161 H 202 H Lactate 1.9 4.4 H* Calcium 8.8 7.9 L Total Bilirubin 0.8 0.6 AST 28 28 ALT 18 22 Alkaline Phosphatase 398 H 343 H Total Creatine Kinase 56 Troponin I < 0.012 Total Protein 8.0 6.6 Albumin 4.1 3.3 L Globulin 3.9 3.3 Albumin/Globulin Ratio 1.1 1.0 Lipase 81 Procalcitonin 0.32 Urine Color Urine Appearance Urine pH Ur Specific [place] Urine Protein Urine Glucose (UA) Urine Ketones Urine Occult Blood Urine Nitrate Urine Bilirubin Ur Bilirubin Confirm Urine Urobilinogen Ur Leukocyte Esterase Urine RBC Urine WBC Ur Squamous Epith Cells Amorphous Sediment Urine Bacteria Hyaline Casts Ur Culture Indicated? Vol Urine Centrifuged U Opiates 300ng/mL cut Ur Oxycodone Screen Urine Methadone Screen Ur Barbiturates Screen U Tricyclic Antidepress Ur Phencyclidine Scrn Ur Amphetamines Screen U Methamphetamines Scrn Ur MDMA Scrn (Ecstasy) U Benzodiazepines Scrn Urine Cocaine Screen U Marijuana (THC) Screen Urine Specific [place] Ethyl Alcohol < 10 Ur Creatinine 06/01/23 06/01/23 06/01/23 12:07 12:18 13:50 WBC 12.0 H RBC 4.60 Hgb 13.2 L Hct 40.3 L MCV 87.5 MCH 28.7 MCHC 32.8 RDW 14.7 Plt Count 457 H Neut % (Auto) Not Reportable Lymph % (Auto) Not Reportable [place] % (Auto) Not Reportable Eos % (Auto) Not Reportable Baso % (Auto) Not Reportable Neut # (Auto) Lymph # (Auto) Not Reportable [place] # (Auto) Not Reportable Eos # (Auto) Baso # (Auto) Not Reportable Total Counted 100 Seg Neutrophils % 61.0 Band Neutrophils % 16.0 H Lymphocytes % (Manual) 16.0 L Monocytes % (Manual) 3.0 Metamyelocytes % 3.0 H Myelocytes % 1.0 H Neutrophils # (Manual) 9240 H Platelet Estimate Increased on smear RBC Morphology Normal morphology PT INR APTT ABG Sample Site Left radial ABG pH 7.17 L* ABG pCO2 73.4 H* ABG pO2 66 L ABG HCO3 27 ABG Total CO2 29 H ABG O2 Saturation 86 L ABG Base Excess -2.0 FiO2 100 Sodium Potassium Chloride Carbon Dioxide BUN Creatinine Estimated GFR BUN/Creatinine Ratio Glucose Lactate Calcium Total Bilirubin AST ALT Alkaline Phosphatase Total Creatine Kinase Troponin I Total Protein Albumin Globulin Albumin/Globulin Ratio Lipase Procalcitonin Urine Color Yellow Urine Appearance Cloudy Urine pH 5.0 Ur Specific [place] 1.020 Urine Protein 2+ H Urine Glucose (UA) Negative Urine Ketones Negative Urine Occult Blood 3+ H Urine Nitrate Positive H Urine Bilirubin 1+ H Ur Bilirubin Confirm TNP Urine Urobilinogen 1.0 Ur Leukocyte Esterase Negative Urine RBC 5-10/hpf H Urine WBC 1-5/hpf Ur Squamous Epith Cells 0-1 /hpf Amorphous Sediment 1+ Urine Bacteria Many (>30) H Hyaline Casts 5-10/lpf Ur Culture Indicated? Specimen cultured Vol Urine Centrifuged 10ml (spun) U Opiates 300ng/mL cut Positive H Ur Oxycodone Screen Negative Urine Methadone Screen Negative Ur Barbiturates Screen Negative U Tricyclic Antidepress Positive H Ur Phencyclidine Scrn Negative Ur Amphetamines Screen Negative U Methamphetamines Scrn Negative Ur MDMA Scrn (Ecstasy) Negative U Benzodiazepines Scrn Negative Urine Cocaine Screen Negative U Marijuana (THC) Screen Negative Urine Specific [place] Ethyl Alcohol Ur Creatinine 06/01/23 06/01/23 13:50 14:00 WBC RBC Hgb Hct MCV MCH MCHC RDW Plt Count Neut % (Auto) Lymph % (Auto) [place] % (Auto) Eos % (Auto) Baso % (Auto) Neut # (Auto) Lymph # (Auto) [place] # (Auto) Eos # (Auto) Baso # (Auto) Total Counted Seg Neutrophils % Band Neutrophils % Lymphocytes % (Manual) Monocytes % (Manual) Metamyelocytes % Myelocytes % Neutrophils # (Manual) Platelet Estimate RBC Morphology PT INR APTT ABG Sample Site ABG pH ABG pCO2 ABG pO2 ABG HCO3 ABG Total CO2 ABG O2 Saturation ABG Base Excess FiO2 Sodium Potassium Chloride Carbon Dioxide BUN Creatinine Estimated GFR BUN/Creatinine Ratio Glucose Lactate 3.1 H Calcium Total Bilirubin AST ALT Alkaline Phosphatase Total Creatine Kinase Troponin I Total Protein Albumin Globulin Albumin/Globulin Ratio Lipase Procalcitonin Urine Color Urine Appearance Urine pH Normal Ur Specific [place] Urine Protein Urine Glucose (UA) Urine Ketones Urine Occult Blood Urine Nitrate Urine Bilirubin Ur Bilirubin Confirm Urine Urobilinogen Ur Leukocyte Esterase Urine RBC Urine WBC Ur Squamous Epith Cells Amorphous Sediment Urine Bacteria Hyaline Casts Ur Culture Indicated? 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
[2023-06-01 14:57] LABS: Adenovirus Not Detected (Not Detect); B. parapertussis Not Detected (Not Detecte); Bordetella pertussis Not Detected (Not Detect); Chlamydophila pneumoniae Not Detected (Not Detect); Coronavirus 229E Not Detected (Not Detect); Coronavirus HKU1 Not Detected (Not Detect); Coronavirus NL 63 Not Detected (Not Detect); Coronavirus OC43 Not Detected (Not Detect); Human Metapneumovirus Not Detected (Not Detect); Human Rhinovirus/Enterovirus Not Detected (Not Detect); Influenza A Not Detected (Not Detect); Influenza B Not Detected (Not Detect); Mycoplasma pneumoniae Not Detected (Not Detect); Parainfluenza Virus 1 Not Detected (Not Detect); Parainfluenza Virus 2 Not Detected (Not Detect); Parainfluenza Virus 3 Not Detected (Not Detect); Parainfluenza Virus 4 Not Detected (Not Detect); Respiratory Syncytial Virus Not Detected (Not Detect)
[2023-06-01] MEDS: LIDOCAINE 2% INJ SDV 5ML 5 ML (15:00)
[2023-06-01 15:02] LABS: SARS- CoV-2 Detected (Not Detecte)
--- NOTE | 2023-06-01 15:44 | DI.RAD.S_ITS ---
PROCEDURE: XR CHEST 1V INDICATIONS: CENTRAL LINE PLACEMENT TECHNIQUE: One view of the chest was acquired. COMPARISON: [facility], CR, XR CHEST 1V, 06/01/2023, 11:56. FINDINGS: Surgical changes and devices: Endotracheal tube tip projects over the midthoracic trachea. Feeding tube passes below the diaphragm. Right IJ central venous catheter tip projects over the low SVC. Lungs and pleura: Worsening perihilar airspace opacities. Mediastinum: Mediastinal contours appear normal. Heart size is normal. Bones and chest wall: No suspicious bony lesions. Overlying soft tissues appear unremarkable. IMPRESSION: Right IJ central venous catheter tip projects over the low SVC. Worsening perihilar airspace opacities. Differential includes flash pulmonary edema, aspiration, chest contusions or hemorrhage. Dictated by: Raghu Campbell M.D. on 06/01/2023 at 16:17 Approved by: Raghu Campbell M.D. on 06/01/2023 at 16:17
[2023-06-01] MEDS: VANCOMYCIN 1,500 MG/300 ML PIGGYBACK 200 MG IV (15:46)
[2023-06-01] MEDS: NOREPINEPHRINE BITARTRATE/D5W 4 MG/250 ML PLAST..BAG 22.5 MG IV (16:01)
--- NOTE | 2023-06-01 16:13 | PC.NURSE ---
Dr. Ravi said ok to use central line. norepi started for map <65. Norepi gtt tunning though right neck central line.
[2023-06-01 16:29] LABS: Troponin I 0.201 ng/mL (0.01-0.034)
[2023-06-01 16:42] LABS: HCO3 ABG 26 mmol/L (23-27); PCO2 ABG 58.2 mmHg (35-45); PO2 ABG 92 mmHg (80-100); TCO2 ABG 28 mmol/L (23-27); pH ABG 7.26 (7.35-7.45)
[2023-06-01 16:43] LABS: Allen Test for ABG Passed? Yes, Passed; Blood Gas Collection Site Left Radial; Fractionated Inspired Oxygen 100; Oxygen Saturation ABG 95 % (95-100)
--- NOTE | 2023-06-01 17:06 | PC.NURSE ---
Fentanyl and ativan drips sent with [facility] crew.
--- NOTE | 2023-06-01 17:36 | PC.NURSE ---
Ativan drip not taken. Will unchart start time and return to Pharmacy.
--- NOTE | 2023-06-01 18:01 | PC.NURSE ---
2412 [facility] assumed care of patient
--- NOTE | 2023-06-01 18:02 | PC.NURSE ---
1312 report given to Racheal HODGES [facility]
== END 2023-06-01 17:40 | disposition short-term general hospital (02) ==
PROVIDERS: Emergency Provider Emergency Medicine
DX: I63.9 Cerebral infarction, unspecified (principal); J96.01 Acute respiratory failure with hypoxia; J69.0 Pneumonitis due to inhalation of food and vomit; K56.609 Unspecified intestinal obstruction, unspecified as to partial versus complete obstruction; Z20.822 Contact with and (suspected) exposure to COVID-19
CPT/HCPCS: 36415; 36569; 36600; 51798; 70450; 70496; 70498; 71045; 71260; 74177; 80053; 80305; 80320; 81001; 82550; 82805; 83605; 83690; 84145; 84484; 85007; 85025; 85610; 85730; 87040; 87086; 87633; 92950; 93005; 93010; 94799; 96365; 96366; 96368; 96375; 96376; 99285; 99291; 99292; J0330; J2060; J2270; J2405; J2543; J3010; Q9967